=== PATIENT | female | born 1985 | race Caucasian/White ===

== ENCOUNTER 2016-11-24 17:51 | Emergency (ER) | payer OTHER ==
[2016-11-24] MEDS ORDERED: NS 0.9% 1000 ML* 1,000 ML IV ONE (19:50)
[2016-11-24 20:12] LABS: Hematocrit 41 % (35-47); Hemoglobin 13.3 g/dl (12.0-16.0); Mean Corpuscular HGB Conc 32 g/dl (31-36); Mean Corpuscular Hemoglobin 29 pg (27-31); Mean Corpuscular Volume 88 fL (80-97); Mean Platelet Volume 9 um3 (7.4-10.4); Red Blood Count 4.64 10^6/ul (4.0-5.4); Red Cell Distribution Width 13 % (10.5-15); White Blood Count 11.3 10^3/ul (3.5-10.8)
[2016-11-24 20:29] LABS: ALT 35 U/L (7-52); AST 25 U/L (13-39); Albumin 4.3 g/dL (3.2-5.2); Alkaline Phosphatase 102 U/L (34-104); Anion Gap 6 mmol/L (2-11); BUN/Creatinine Ratio 18.3 (8-20); Blood Urea Nitrogen 15 mg/dL (6-24); CO2 Carbon Dioxide 26 mmol/L (22-32); Calcium 9.4 mg/dL (8.6-10.3); Chloride 104 mmol/L (101-111); EGFR African American 103.3 (>60); EGFR Non-African American 80.3 (>60); Globulin 3.1 g/dL (2-4); Glucose 100 mg/dL (70-100); Potassium 3.8 mmol/L (3.5-5.0); Sodium 136 mmol/L (133-145); Total Protein 7.4 g/dL (6.4-8.9)
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
[2016-11-24 21:54] LABS: Urine Bacteria 1+ (Absent); Urine Bilirubin Negative (Negative); Urine Glucose Negative (Negative); Urine Nitrite Negative (Negative)
[2016-11-24 22:02] VITALS: BP 110/70
== END 2016-11-24 22:00 | disposition home or self-care (01) ==
LOC: ED 17:51
DX: S00.83XA Contusion of other part of head, initial encounter (principal); Y09 Assault by unspecified means; Y93.9 Activity, unspecified; Y92.9 Unspecified place or not applicable; Y99.9 Unspecified external cause status
CPT/HCPCS: 36415; 70450; 70486; 80053; 81003; 81015; 84702; 85025; 87086; 99282

== ENCOUNTER 2019-02-11 21:09 | Emergency (ER) | payer OTHER ==
--- OUTSIDE RECORDS SUMMARY | 2019-02-11 22:20 | XMS REPORT | Continuity of Care Document ---
:1985 External Reference #:[id number] Author Name Bimal Sheikh MD Address [address] [place] [address] Care Team Providers Name Role Phone Antionette Kyle M.D., R.Moy. Care Team Information Inspector Balance Wheel Motion Unavailable Payers Date Identification Numbers Payment Provider Subscriber Effective: 2011 Policy Number: [id number] [facility] [place] Expires: 2012 Group Name: Juan [employer]po [address] [address] PayID: [id number] [place] [address] Effective: 2012 Policy Number: [id number] [place] BCBS [place] Expires: 2013 Group Name: Juan Ppo [address] [address] PayID: [id number] [place] [address] Effective: 2013 Policy Number: [id number] Medicaid/Computer [employer] [place] Expires: 2013 Group Name: 1 1 [address] PayID: [id number] [place] [address] Effective: 2013 Policy Number: [id number] [facility] [place] Medicaid Expires: 2017 PayID: [id number] [address] [place] [address] Effective: 2017 Policy Number: [id number] Medicaid/Computer Science [place] Expires: 2017 Group Name: 1 1 [address] PayID: [id number] [place] [address] Effective: 2017 Policy Number: [id number] [facility] [place] Medicaid Expires: 2018 PayID: [id number] [address] [place] [address] Effective: 2018 Policy Number: [id number] [place] Expires: 2018 Group Name: [employer] 2 [address] [address] PayID: [id number] [place] [id number] PayID: [id number] [employer] - [employer] [place] [address] [place] [address] Advance Directives Description No Information Available Problems Date Description Provider Status Onset: 12/16/2010 Mixed hyperlipidemia Jessica Cordero NP Active Onset: 10/20/2011 Depressive disorder Antionette Kyle M.D., R.D. Active Family History Date Family Member(s) Observation Comments General Cousins and grandparents with Type 2 DM Children 1 First Son Asthma Paternal Grandmother Cancers, leukemia, breast, in her 60's after being stomach sick for 20 yrs. Maternal Grandmother due to PA () - age 30. May have had congenital heart problems. 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 Magnesium 11/28 Active Capsules 125mg 1-4 qd Antionette Doris Kyle, R.D. Vitamin D 05/16 Active Tablets 1000Unit 5000 Iu by mouth every janel Kyle M.D., R.D. Zoloft 05/09 Active Tablets 100mg 30tab 1 by mouth F41.9 s every day- prieto Kyle M.D., R.D. Norethindrone Active Tablets 0.35mg take 1 Unknown /0000 tablet by mouth daily for control Macrobid 04/30 Hx Capsules 100mg 10cap please fill s generically Saroj, - 1 by mouth Doris, 01/18 twice a day R.D. /2018 for 5 days Diflucan 11/24 Hx Tablets 150mg 1tabs 1 by mouth x 1 Suresh Kyle M.D., 02/12 R.D. Iron 05/16 Hx Tablets 28mg Suresh Kyle M.D., 02/12 R.D. Magnesium 05/16 Hx Tablets 500mg 1 by mouth every day Suresh Kyle M.D., 11/28 R.D. Vitamin C 05/16 Hx Tablets 1000mg 1 by mouth three times Saroj, - a day Doris, 02/12 R.D. B Complex 05/16 Hx Capsules Suresh Kyle M.D., 02/12 R.D. Omeprazole 04/[address] 20mg 30cap 1 by mouth s every day if Serafin Ball, - needed [employer] 05/16 Pantoprazole 02/[address] 20mg 30tab 1 by mouth Ana Sodium s every day Jaylan, - [employer] 04/28 Ondansetron 01/14 Hx Tablets 4mg 15fif dissolve 1 626.8 Dispers teen tab by mouth Jaylan, - three times [employer] 02/11 a day needed nausea Sertraline HCL 01/05 Hx Tablets 50mg 30tab 1 by mouth wnti s every day Serafin Ball, - [employer] 01/05 Zoloft 01/05 Hx Tablets 50mg 30tab 1 by mouth s daily for Saroj, - depression Doris, 05/09 R.D. Fluticasone 12/15 Hx Suspension 50mcg/Act 1mont 2 sprays Shawnti Propionate h each nare Serafin Ball, - daily for [employer] 02/11 rhinitis 2016 Hydroxyzine HCL 12/15 Hx Tablets 10mg 30tab 1 by mouth s three times Serafin Ball, - a day as [employer] 02/11 needed for dizziness or anxiety Ilotycin 10/06 Hx Ointment 5mg/GM 1unit apply a thin s layer to Jaylan, - eyelid [employer] 02/11 twice a day Cephalexin 10/06 Hx Tablets 250mg 14tab 1 tablet by 035 s mouth twice Jaylan, - a day x 7 [employer] Amoxicillin 10/06 Hx Tablets 875mg 20tab 1 tablet 035 s twice a day Jaylan, - x 10 days [employer] 12/15 replace keflex 10/06 Hx Tablets 14-0.4mg 30tab 1 by mouth s every day Jaylan, - [employer] 02/11 Clotrimazole/Be 10/06 Hx Cream 1-0.05% 45uni apply twice 110.5 tamethasone ts daily to Jaylan Dipropvalencia - lower leg [employer] 02/11 Triamcinolone 01/03 Hx Cream 0.1% 30g apply to 782.1 Antionette Acetonide affected Saroj, - area bid for Doris, 02/11 2 weeks R.D. /2015 Diflucan 09/09 Hx Tablets 150mg 1tabs 1 po x 1 Suresh Kyle M.D., 01/03 R.D. /2013 Doxycycline 07/26 Hx Capsules 100mg 28cap 1 po bid as Shawnti Hyclate s directed for Serafin Ball, - lyme- take [employer] 01/03 with glass water Amoxicillin 07/02 Hx Tablets 500mg 21tab 1 po tid x 1 s week for Saroj, - lyme disease Doris, 07/26 as directed R.D. /2012 Amoxicillin 10/30 Hx Tablets 500mg 30tab 1 po tid for 691.8 Antionette s 10 days for Suresh Kyle M.D., 11/07 infection R.D. /2012 Clotrimazole/Be 10/30 Hx Cream 1-0.05% 15gm apply to 691.8 Shawnti tamethasone affected Serafin Quinn Dipropionate - area tid [employer] 06/27 resolved Doxycycline 10/30 Hx Tablets 100mg 20tab 1 po bid for 691.8 Antionette Hyclate s 10 days Suresh Kyle M.D., 06/27 R.D. Sertraline HCL 10/25 Hx Tablets 50mg 30tab 1 po qd wnt s Serafin Ball - [facility] 11/07 Plan B One-Step 06/25 Hx Tablets 1.5mg 1tabs 1 po within 72 hours of Saroj - unprotected Jama.Melinda, 08/15 intercourse R.D. Zoloft 03/14 Hx Tablets 50mg 30tab Take 1 s Tablet Every Saroj, - Day M.DGilberto, 01/05 R.D. /2014 Sertraline HCL 11/02 Hx Tablets 50mg 30tab Take 1 s Tablet By Saroj, - Mouth Once M.DGilberto, 03/14 Daily R.D. Vistaril 07/30 Hx Capsules 50mg 60cap 1 tab po 300.02 s every 8 Gil, - hours prn [employer] 05/16 No Work Today 07/30 Hx 300.02 Gil, - [employer] 05/31 Zoloft 05/31 Hx Tablets 50mg 30tab 1 po qd s Suresh Kyle M.D., 11/02 R.D. /2011 08/13 Hx Tablets 27-1mg 90tab 1 po daily V22.2 Shawnti Plus/Iron s for vitamin Serafin Ball - suppliment [facility] 07/30 Augmentin 01/12 Hx Tablets 875mg 20tab 1 po bid s Suresh Kyle M.D., 02/23 R.D. /2008 Zoloft 01/12 Hx Tablets 100mg 30tab 1 po qd Suresh Morfin M.D., 05/31 R.D. /2009 Immunizations CPT Code Status Date Vaccine Lot # [id number] Given 07/29/2015 Influenza Virus Vaccine, Quadrivalent, 3 Yr > Quad, Preserv Free [id number] Given 07/16/2013 Influenza Vaccine-Preservative Free 3 Yrs And Above Vital Signs Date Vital Result Comment 01/18/2019 8:56am Weight 174.00 lb Weight 78.926 kg BP Systolic 92 mmHg BP Diastolic 62 mmHg Heart Rate 72 /min Body Temperature 97.6 F Respiratory Rate 14 /min 02/12/2018 11:21am Weight 177.00 lb Weight 80.287 kg BP Systolic 100 mmHg BP Diastolic 78 mmHg Heart Rate 77 /min Body Temperature 98.4 F Respiratory Rate 16 /min O2 % BldC Oximetry 98 % 10/26/2017 1:50pm Weight 177.00 lb Weight 80.287 kg BP Systolic 100 mmHg BP Diastolic 60 mmHg Heart Rate 74 /min Body Temperature 98.2 F Respiratory Rate 14 /min 03/29/2017 4:38pm Weight 174.00 lb Weight 78.926 kg BP Systolic 114 mmHg BP Diastolic 78 mmHg Heart Rate 70 /min Body Temperature 98.6 F Respiratory Rate 14 /min O2 % BldC Oximetry 99 % 01/20/2017 1:35pm Weight 177.00 lb Weight 80.287 kg BP Systolic 110 mmHg BP Diastolic 60 mmHg Heart Rate 64 /min 11/28/2016 3:16pm Weight 174.00 lb Weight 78.926 kg BP Systolic 100 mmHg BP Diastolic 60 mmHg Heart Rate 82 /min Body Temperature 98.7 F Respiratory Rate 17 /min O2 % BldC Oximetry 98 % 08/17/2016 10:56am Weight 174.00 lb Weight 78.926 kg BP Systolic 100 mmHg BP Diastolic 70 mmHg Heart Rate 60 /min Body Temperature 98.1 F Respiratory Rate 12 /min 06/15/2016 12:15pm Weight 171.00 lb Weight 77.566 kg BP Systolic 92 mmHg BP Diastolic 70 mmHg Heart Rate 72 /min 05/16/2016 3:29pm Weight 181.00 lb Weight 82.102 kg BP Systolic 120 mmHg BP Diastolic 70 mmHg Heart Rate 82 /min Body Temperature 98.6 F 04/28/2016 1:30pm Weight 172.00 lb Weight 78.019 kg BP Systolic 106 mmHg BP Diastolic 70 mmHg Heart Rate 68 /min Body Temperature 98.5 F Height 64.5 inches 5'4.50" BMI (Body Mass Index) 29.1 kg/m2 02/12/2016 2:41pm Weight 179.00 lb Weight 81.194 kg BP Systolic 110 mmHg BP Diastolic 72 mmHg Heart Rate 70 /min 12/30/2015 4:10pm Weight 175.00 lb Weight 79.380 kg BP Systolic 104 mmHg BP Diastolic 70 mmHg Heart Rate 56 /min Body Temperature 98.5 F 11/02/2015 2:49pm Weight 200.00 lb Weight 90.720 kg BP Systolic 102 mmHg BP Diastolic 58 mmHg Heart Rate 100 /min 06/12/2015 4:15pm Weight 167.00 lb Weight 75.751 kg BP Systolic 106 mmHg BP Diastolic 58 mmHg Heart Rate 60 /min Body Temperature 98.8 F 01/14/2015 3:39pm BP Systolic 100 mmHg BP Diastolic 60 mmHg Heart Rate 88 /min Body Temperature 99.1 F Last Menstrual Period [id number] 12/15/2014 3:09pm Weight 158.00 lb Weight 71.669 kg BP Systolic 100 mmHg BP Diastolic 60 mmHg Heart Rate 77 /min O2 % BldC Oximetry 98 % 10/06/2014 1:29pm Weight 156.00 lb Weight 70.762 kg BP Systolic 96 mmHg BP Diastolic 52 mmHg Heart Rate 76 /min Right Visual Acuity Distance 20/30 Left Visual Acuity Distance 20/25 Both Visual Acuity Distance 20/25 07/22/2014 10:36am Weight 153.00 lb Weight 69.401 kg BP Systolic 106 mmHg BP Diastolic 70 mmHg Heart Rate 68 /min Body Temperature 98.3 F O2 % BldC Oximetry 99 % 03/19/2014 1:13pm Weight 149.00 lb Weight 67.586 kg BP Systolic 86 mmHg BP Diastolic 52 mmHg Heart Rate 68 /min Body Temperature 98.5 F 01/13/2014 2:32pm Weight 150.00 lb Weight 68.040 kg BP Systolic 98 mmHg BP Diastolic 60 mmHg Heart Rate 68 /min 01/03/2014 1:44pm Weight 151.00 lb Weight 68.494 kg BP Systolic 92 mmHg BP Diastolic 58 mmHg Heart Rate 68 /min Last Menstrual Period [id number] 07/17/2013 12:33pm Weight 150.00 lb Weight 68.040 kg BP Systolic 120 mmHg BP Diastolic 66 mmHg Heart Rate 68 /min 06/27/2013 10:49am Weight 149.00 lb Weight 67.586 kg BP Systolic 110 mmHg BP Diastolic 70 mmHg Heart Rate 80 /min 11/07/2012 11:51am Weight 153.00 lb Weight 69.401 kg BP Systolic 104 mmHg BP Diastolic 64 mmHg Heart Rate 84 /min 10/30/2012 1:43pm Weight 152.00 lb Weight 68.947 kg BP Systolic 104 mmHg BP Diastolic 66 mmHg Heart Rate 68 /min Body Temperature 97.6 F 08/15/2012 11:45am Weight 149.00 lb Weight 67.586 kg BP Systolic 92 mmHg BP Diastolic 60 mmHg Heart Rate 82 /min O2 % BldC Oximetry 98 % Ra 05/16/2012 1:14pm Weight 152.00 lb Weight 68.947 kg BP Systolic 104 mmHg BP Diastolic 74 mmHg Heart Rate 80 /min 10/20/2011 2:34pm Weight 156.00 lb Weight 70.762 kg BP Systolic 122 mmHg BP Diastolic 80 mmHg Heart Rate 65 /min 12/16/2010 12:06pm Weight 157.00 lb Weight 71.215 kg BP Systolic 100 mmHg BP Diastolic 70 mmHg Heart Rate 76 /min Body Temperature 98.3 F Last Menstrual Period [id number] 09/14/2010 2:23pm Weight 157.00 lb Weight 71.215 kg BP Systolic 100 mmHg BP Diastolic 66 mmHg Heart Rate 84 /min Body Temperature 98.5 F 08/17/2010 10:17am Weight 158.00 lb Weight 71.669 kg BP Systolic 112 mmHg BP Diastolic 70 mmHg Heart Rate 76 /min Body Temperature 97.9 F 07/30/2010 9:34am Weight 156.00 lb Weight 70.762 kg BP Systolic 100 mmHg BP Diastolic 70 mmHg Heart Rate 80 /min Body Temperature 98.5 F 05/31/2010 9:32am Weight 160.00 lb Weight 72.576 kg BP Systolic 106 mmHg BP Diastolic 70 mmHg Heart Rate 68 /min 10/13/2009 10:55am Weight 155.00 lb Weight 70.308 kg BP Systolic 102 mmHg BP Diastolic 60 mmHg Heart Rate 80 /min Body Temperature 97.3 F 08/13/2009 8:22am Weight 147.00 lb Weight 66.679 kg BP Systolic 128 mmHg BP Diastolic 64 mmHg Heart Rate 72 /min Height 64.75 inches 5'4.75" BMI (Body Mass Index) 24.6 kg/m2 Last Menstrual Period [id number] 02/23/2009 9:08am Weight 144.00 lb Weight 65.318 kg BP Systolic 110 mmHg BP Diastolic 64 mmHg Heart Rate 78 /min 01/12/2009 10:56am Weight 142.00 lb Weight 64.411 kg BP Systolic 92 mmHg BP Diastolic 60 mmHg Heart Rate 68 /min Body Temperature 96.8 F Height 64.50 inches 5'4.50" BMI (Body Mass Index) 24.0 kg/m2 Results Test Date Facility Test Result H/L Range Note Laboratory test 11/02/2018 [facility] Cytology SEE RESULT 1 finding [phone] BELOW Laboratory test 02/12/2018 [facility] TSH (Thyroid 1.47 N 0.34-5.60 finding [phone] Stim Horm) mcIU/mL T3 Total 0.91 ng/mL N 0.87-1.78 Free T4 (Free Thyroxine) 0.79 ng/dL N 0.61-1.12 Arthritis Panel 02/12/2018 [facility] Uric Acid 5.0 mg/dL N 2.3-6.6 [phone] Erythrocyte Sed Rate 17 mm/Hr High 0-14 Anti-Nuclear Antibody 1.8 U High 2 Cyclic Citrullinated Peptide <15.6 U 3 Interpretation See Comment 4 Rheumatoid Factor <10 IU/mL 0-14 5 Laboratory test 02/12/2018 [facility] Magnesium 1.8 mg/dL Low 1.9-2.7 finding [phone] Progesterone 7.8 ng/mL 6 Testosterone Free 02/12/2018 [facility] Free 0.58 0.06-1.03 7 & Total [phone] Testosterone ng/dL ng/dl Testosterone 23 ng/dL 8-60 8 Laboratory test finding 02/12/2018 [facility] Dhea 3.1 ng/mL <10 9 [phone] Estradiol 146 pg/mL 10 CBC Auto Diff 02/12/2018 [facility] White Blood 7.4 10^3/uL N 3.5-10.8 [phone] Count Red Blood Count 4.36 10^6/uL N 4.0-5.4 Hemoglobin 13.6 g/dL N 12.0-16.0 Hematocrit 40 % N 35-47 Mean Corpuscular Volume 91 fL N 80-97 Mean Corpuscular Hemoglobin 31 pg N 27-31 Mean Corpuscular HGB Conc 35 g/dL N 31-36 Red Cell Distribution Width 13 % N 10.5-15 Platelet Count 217 10^3/uL N 150-450 Mean Platelet Volume 9.2 um3 N 7.4-10.4 Abs Neutrophils 4.2 10^3/uL N 1.5-7.7 Abs Lymphocytes 2.6 10^3/uL N 1.0-4.8 Abs Monocytes 0.4 10^3/uL N 0-0.8 Abs Eosinophils 0.1 10^3/uL N 0-0.6 Abs Basophils 0 10^3/uL N 0-0.2 Abs Nucleated RBC 0 10^3/uL Granulocyte % 56.9 % N 38-83 Lymphocyte % 35.2 % N 25-47 Monocyte % 5.3 % N 0-7 Eosinophil % 2.0 % N 0-6 Basophil % 0.6 % N 0-2 Nucleated Red Blood Cells % 0.1 Laboratory test 02/12/2018 [facility] Vitamin D 44.7 ng/mL N 20-50 11, 12 finding [phone] Total 25(Oh) Laboratory test 09/25/2017 [facility] Ferritin 24.8 ng/mL N 11-307 13, 14 finding [phone] Vitamin B12 739 pg/mL N 180-914 15 Vitamin D Total 25(Oh) 50.5 ng/mL High 20-50 16 Lipid Profile 09/25/2017 [facility] Triglycerides 124 mg/dL 17 (Trig/Chol/HDL) [phone] Cholesterol 197 mg/dL 18 HDL Cholesterol 43.3 mg/dL 19 LDL Cholesterol 129 mg/dL 20 Iron & Iron Binding 09/25/2017 [facility] Iron 61 g /dL N 50-212 Capacity [phone] Unsaturated Iron Binding 299 g/dL Total Iron Binding Capacity 360 g/dL N 250-450 % Iron Saturation 17 % N 15-55 Laboratory test 11/24/2016 [facility] Urine Culture SEE RESULT 21 finding [phone] BELOW Urinalysis Profile 11/24/2016 [facility] Urine Color Yellow N [phone] Urine Appearance Cloudy N Urine Specific [place] 1.006 Low 1.010-1.030 Urine pH 5.0 N 5-9 Urine Urobilinogen Negative N Negative Urine Ketones Negative N Negative Urine Protein Negative N Negative Urine Leukocytes Trace Abnormal Negative Urine Blood Negative N Negative Urine Nitrite Negative N Negative Urine Bilirubin Negative N Negative Urine Glucose Negative N Negative Urine White Blood Cell Trace(0-5/hpf) N Absent Urine Red Blood Cell Trace(0-2/hpf) N Absent Urine Bacteria 1+ Abnormal Absent Urine Squamous Epithelial Cell Present Abnormal Absent Laboratory test 11/24/2016 [facility] HCG < 0.60 N 22 finding [phone] mIU/mL Comp Metabolic 11/24/2016 [facility] Sodium 136 mmol/ L N 133-14 Panel [phone] Potassium 3.8 mmol/L N 3.5-5.0 Chloride 104 mmol/L N 101-111 Co2 Carbon Dioxide 26 mmol/L N 22-32 Anion Gap 6 mmol/L N 2-11 Glucose 100 mg/dL N 70-100 Blood Urea Nitrogen 15 mg/dL N 6-24 Creatinine 0.82 mg/dL N 0.51-0.95 BUN/Creatinine Ratio 18.3 N 8-20 Calcium 9.4 mg/dL N 8.6-10.3 Total Protein 7.4 g/dL N 6.4-8.9 Albumin 4.3 g/dL N 3.2-5.2 Globulin 3.1 g/dL N 2-4 Albumin/Globulin Ratio 1.4 N 1-3 Total Bilirubin 0.30 mg/dL N 0.2-1.0 Alkaline Phosphatase 102 U/L N 34-104 Alt 35 U/L N 7-52 Ast 25 U/L N 13-39 Egfr Non- 80.3 N >60 Egfr 103.3 N >60 23 CBC Auto 11/24/2016 [facility] White Blood 11.3 10^3/ uL High 3.5-10.8 Diff [phone] Count Red Blood Count 4.64 10^6/uL N 4.0-5.4 Hemoglobin 13.3 g/dL N 12.0-16.0 Hematocrit 41 % N 35-47 Mean Corpuscular Volume 88 fL N 80-97 Mean Corpuscular Hemoglobin 29 pg N 27-31 Mean Corpuscular HGB Conc 32 g/dL N 31-36 Red Cell Distribution Width 13 % N 10.5-15 Platelet Count 229 10^3/uL N 150-450 Mean Platelet Volume 9 um3 N 7.4-10.4 Abs Neutrophils 8.3 10^3/uL High 1.5-7.7 Abs Lymphocytes 2.2 10^3/uL N 1.0-4.8 Abs Monocytes 0.6 10^3/uL N 0-0.8 Abs Eosinophils 0 10^3/uL N 0-0.6 Abs Basophils 0.1 10^3/uL N 0-0.2 Abs Nucleated RBC 0 10^3/uL N Granulocyte % 73.5 % N 38-83 Lymphocyte % 19.7 % Low 25-47 Monocyte % 5.2 % N 1-9 Eosinophil % 0.4 % N 0-6 Basophil % 1.2 % N 0-2 Nucleated Red Blood Cells % 0 N Comp Metabolic Panel 11/19/2016 [facility] Sodium 137 mmol/L N 133-145 [phone] Potassium 4.5 mmol/L N 3.5-5.0 Chloride 105 mmol/L N 101-111 Co2 Carbon Dioxide 29 mmol/L N 22-32 Anion Gap 3 mmol/L N 2-11 Glucose 92 mg/dL N 70-100 Blood Urea Nitrogen 12 mg/dL N 6-24 Creatinine 0.71 mg/dL N 0.51-0.95 BUN/Creatinine Ratio 16.9 N 8-20 Calcium 9.3 mg/dL N 8.6-10.3 Total Protein 7.0 g/dL N 6.4-8.9 Albumin 4.3 g/dL N 3.2-5.2 Globulin 2.7 g/dL N 2-4 Albumin/Globulin Ratio 1.6 N 1-3 Total Bilirubin 0.40 mg/dL N 0.2-1.0 Alkaline Phosphatase 91 U/L N 34-104 Alt 37 U/L N 7-52 Ast 34 U/L N 13-39 Egfr Non- 94.8 N >60 Egfr 121.9 N >60 24 CBC Auto Diff 11/19/2016 [facility] White Blood 7.2 10^3/uL N 3.5-10.8 [phone] Count Red Blood Count 4.54 10^6/uL N 4.0-5.4 Hemoglobin 13.3 g/dL N 12.0-16.0 Hematocrit 40 % N 35-47 Mean Corpuscular Volume 88 fL N 80-97 Mean Corpuscular Hemoglobin 29 pg N 27-31 Mean Corpuscular HGB Conc 33 g/dL N 31-36 Red Cell Distribution Width 14 % N 10.5-15 Platelet Count 208 10^3/uL N 150-450 Mean Platelet Volume 9 um3 N 7.4-10.4 Abs Neutrophils 4.2 10^3/uL N 1.5-7.7 Abs Lymphocytes 2.5 10^3/uL N 1.0-4.8 Abs Monocytes 0.4 10^3/uL N 0-0.8 Abs Eosinophils 0.1 10^3/uL N 0-0.6 Abs Basophils 0 10^3/uL N 0-0.2 Abs Nucleated RBC 0 10^3/uL N Granulocyte % 58.3 % N 38-83 Lymphocyte % 34.0 % N 25-47 Monocyte % 6.1 % N 1-9 Eosinophil % 0.9 % N 0-6 Basophil % 0.7 % N 0-2 Nucleated Red Blood Cells % 0 N Laboratory test 11/19/2016 [facility] Ferritin 18.3 ng/mL N 11-307 finding [phone] Vitamin D Total 25(Oh) 29.8 ng/mL Low 30-50 Vitamin B12 887 pg/mL N 180-914 25 Magnesium 2.0 mg/dL N 1.9-2.7 Laboratory test 08/08/2016 [facility] Ferritin 14.3 ng/mL N 11-307 finding [phone] RBC Magnesium 3.6 mg/dL N 3.5-7.1 26 CBC Auto Diff 08/08/2016 [facility] White Blood 7.7 10^3/uL N 3.5-10.8 [phone] Count Red Blood Count 4.60 10^6/uL N 4.0-5.4 Hemoglobin 13.0 g/dL N 12.0-16.0 Hematocrit 40 % N 35-47 Mean Corpuscular Volume 86 fL N 80-97 Mean Corpuscular Hemoglobin 28 pg N 27-31 Mean Corpuscular HGB Conc 33 g/dL N 31-36 Red Cell Distribution Width 14 % N 10.5-15 Platelet Count 202 10^3/uL N 150-450 Mean Platelet Volume 10 um3 N 7.4-10.4 Abs Neutrophils 4.1 10^3/uL N 1.5-7.7 Abs Lymphocytes 2.9 10^3/uL N 1.0-4.8 Abs Monocytes 0.4 10^3/uL N 0-0.8 Abs Eosinophils 0.2 10^3/uL N 0-0.6 Abs Basophils 0.1 10^3/uL N 0-0.2 Abs Nucleated RBC 0 10^3/uL N Granulocyte % 53.9 % N 38-83 Lymphocyte % 38.5 % N 25-47 Monocyte % 4.7 % N 1-9 Eosinophil % 2.1 % N 0-6 Basophil % 0.8 % N 0-2 Nucleated Red Blood Cells % 0 N Laboratory test 08/08/2016 [facility] Vitamin B12 647 pg/mL N 180-914 27 finding [phone] Vitamin D Total 25(Oh) 41.4 ng/mL N 30-50 Laboratory test 06/15/2016 [facility] Vitamin D 63.9 ng/mL High 30-50 28 finding [phone] Total 25(Oh) Vitamin B12 738 pg/mL N 180-914 29 Magnesium 2.0 mg/dL N 1.9-2.7 30 Iron & Iron Binding 06/15/2016 [facility] Iron 141 g/dL N 50-212 Capacity [phone] Unsaturated Iron Binding 229 g/dL N Total Iron Binding Capacity 370 g/dL N 250-450 % Iron Saturation 38 % N 15-55 CBC Auto Diff 06/15/2016 [facility] White Blood 6.8 10^3/uL N 3.5-10.8 [phone] Count Red Blood Count 4.67 10^6/uL N 4.0-5.4 Hemoglobin 13.2 g/dL N 12.0-16.0 Hematocrit 41 % N 35-47 Mean Corpuscular Volume 88 fL N 80-97 Mean Corpuscular Hemoglobin 28 pg N 27-31 Mean Corpuscular HGB Conc 32 g/dL N 31-36 Red Cell Distribution Width 14 % N 10.5-15 Platelet Count 242 10^3/uL N 150-450 Mean Platelet Volume 10 um3 N 7.4-10.4 Abs Neutrophils 3.6 10^3/uL N 1.5-7.7 Abs Lymphocytes 2.6 10^3/uL N 1.0-4.8 Abs Monocytes 0.3 10^3/uL N 0-0.8 Abs Eosinophils 0.2 10^3/uL N 0-0.6 Abs Basophils 0.1 10^3/uL N 0-0.2 Abs Nucleated RBC 0.04 10^3/uL N Granulocyte % 53.0 % N 38-83 Lymphocyte % 38.2 % N 25-47 Monocyte % 5.1 % N 1-9 Eosinophil % 2.8 % N 0-6 Basophil % 0.9 % N 0-2 Nucleated Red Blood Cells % 0.5 N Laboratory test 06/15/2016 [facility] Ferritin 10.8 ng/mL Low 11-307 31 finding [phone] Laboratory test 02/12/2016 [facility] HCG DIP Test NEG Neg finding [phone] Laboratory test 12/30/2015 [facility] House [facility] Glucose By 84 78-110 finding [phone] Moniter Laboratory test 11/02/2015 [facility] Surgical SEE RESULT 32 finding [phone] Pathology BELOW CBC Auto Diff 07/04/2015 [facility] White Blood 7.6 N 4.8-10.8 [phone] Count 10^3/uL Red Blood Count 3.40 10^6/uL Low 4.0-5.4 Hemoglobin 10.8 g/dL Low 12.0-16.0 Hematocrit 32 % Low 35-47 Mean Corpuscular Volume 95 fL N 80-97 Mean Corpuscular Hemoglobin 32 pg High 27-31 Mean Corpuscular HGB Conc 34 g/dL N 31-36 Red Cell Distribution Width 14 % N 10.5-15 Platelet Count 194 10^3/uL N 150-450 Mean Platelet Volume 9 um3 N 7.4-10.4 Abs Neutrophils 5.4 10^3/uL N 1.5-7.7 Abs Lymphocytes 1.9 10^3/uL N 1.0-4.8 Abs Monocytes 0.3 10^3/uL N 0-0.8 Abs Eosinophils 0.1 10^3/uL N 0-0.6 Abs Basophils 0 10^3/uL N 0-0.2 Abs Nucleated RBC 0.01 10^3/uL N Granulocyte % 70.2 % N 38-83 Lymphocyte % 24.6 % Low 25-47 Monocyte % 3.7 % N 1-9 Eosinophil % 1.1 % N 0-6 Basophil % 0.4 % N 0-2 Nucleated Red Blood Cells % 0.1 N Lipid Profile 07/04/2015 [facility] Triglycerides 200 mg/dL N 33 (Trig/Chol/HDL) [phone] Cholesterol 245 mg/dL N 34 HDL Cholesterol 73.7 mg/dL N 35 LDL Cholesterol 131 mg/dL N 36 CBC Auto Diff 06/18/2015 [facility] White Blood 7.9 10^3/uL N 4.8-10.8 [phone] Count Red Blood Count 3.63 10^6/uL Low 4.0-5.4 Hemoglobin 11.1 g/dL Low 12.0-16.0 Hematocrit 34 % Low 35-47 Mean Corpuscular Volume 93 fL N 80-97 Mean Corpuscular Hemoglobin 31 pg N 27-31 Mean Corpuscular HGB Conc 33 g/dL N 31-36 Red Cell Distribution Width 15 % N 10.5-15 Platelet Count 188 10^3/uL N 150-450 Mean Platelet Volume 9 um3 N 7.4-10.4 Abs Neutrophils 5.5 10^3/uL N 1.5-7.7 Abs Lymphocytes 2.0 10^3/uL N 1.0-4.8 Abs Monocytes 0.2 10^3/uL N 0-0.8 Abs Eosinophils 0.1 10^3/uL N 0-0.6 Abs Basophils 0 10^3/uL N 0-0.2 Abs Nucleated RBC 0 10^3/uL N Granulocyte % 70.0 % N 38-83 Lymphocyte % 25.3 % N 25-47 Monocyte % 3.1 % N 1-9 Eosinophil % 1.3 % N 0-6 Basophil % 0.3 % N 0-2 Nucleated Red Blood Cells % 0 N Laboratory test 06/18/2015 [facility] C Reactive 6.09 mg/L High < 5.00 37 finding [phone] Protein Ferritin 15.8 ng/mL N 11-307 Iron & Iron Binding 06/18/2015 [facility] Iron 79 g /dL N 50-212 Capacity [phone] Unsaturated Iron Binding 412 g/dL N Total Iron Binding Capacity 491 g/dL High 250-450 % Iron Saturation 16 % N 15-55 CBC Auto Diff 06/12/2015 [facility] White Blood 6.8 10^3/uL N 4.8-10.8 [phone] Count Red Blood Count 3.86 10^6/uL Low 4.0-5.4 Hemoglobin 12.0 g/dL N 12.0-16.0 Hematocrit 36 % N 35-47 Mean Corpuscular Volume 92 fL N 80-97 Mean Corpuscular Hemoglobin 31 pg N 27-31 Mean Corpuscular HGB Conc 34 g/dL N 31-36 Red Cell Distribution Width 15 % N 10.5-15 Platelet Count 169 10^3/uL N 150-450 Mean Platelet Volume 8 um3 N 7.4-10.4 Abs Neutrophils 5.7 10^3/uL N 1.5-7.7 Abs Lymphocytes 0.7 10^3/uL Low 1.0-4.8 Abs Monocytes 0.3 10^3/uL N 0-0.8 Abs Eosinophils 0 10^3/uL N 0-0.6 Abs Basophils 0 10^3/uL N 0-0.2 Abs Nucleated RBC 0 10^3/uL N Granulocyte % 84.2 % High 38-83 Lymphocyte % 10.2 % Low 25-47 Monocyte % 5.1 % N 1-9 Eosinophil % 0.2 % N 0-6 Basophil % 0.3 % N 0-2 Nucleated Red Blood Cells % 0 N Urinalysis Profile 06/12/2015 [facility] Urine Color Yellow N [phone] Urine Appearance Cloudy N Urine Specific [place] 1.020 N 1.010-1.030 Urine pH 6.0 N 5-9 Urine Urobilinogen Negative N Negative Urine Ketones Negative N Negative Urine Protein Negative N Negative Urine Leukocytes Negative N Negative Urine Blood Negative N Negative Urine Nitrite Negative N Negative Urine Bilirubin Negative N Negative Urine Glucose Negative N Negative Comp Metabolic Panel 06/12/2015 [facility] Sodium 134 mmol/L N 133-145 [phone] Potassium 3.5 mmol/L N 3.5-5.0 Chloride 104 mmol/L N 101-111 Co2 Carbon Dioxide 24 mmol/L N 22-32 Anion Gap 6 mmol/L N 2-11 Glucose 85 mg/dL N 70-100 Blood Urea Nitrogen 10 mg/dL N 6-24 Creatinine 0.62 mg/dL N 0.51-0.95 BUN/Creatinine Ratio 16.1 N 8-20 Calcium 8.9 mg/dL N 8.6-10.3 Total Protein 6.5 g/dL N 6.4-8.9 Albumin 3.4 g/dL N 3.2-5.2 Globulin 3.1 g/dL N 2-4 Albumin/Globulin Ratio 1.1 N 1-3 Total Bilirubin 0.20 mg/dL N 0.2-1.0 Alkaline Phosphatase 68 U/L N 34-104 Alt 12 U/L N 7-52 Ast 13 U/L N 13-39 Egfr Non- 111.6 N >60 Egfr 143.5 N >60 38 Laboratory test 06/12/2015 [facility] Lipase 22 U/L N 11.0-82.0 finding [phone] C Reactive Protein 21.63 mg/L High < 5.00 39 Lactic Acid 0.8 mmol/L N 0.5-2.2 Urinalysis Profile 05/13/2015 [facility] Urine Color Yellow N 40 [phone] Urine Appearance Cloudy N Urine Specific [place] 1.023 N 1.010-1.030 Urine pH 6.0 N 5-9 Urine Urobilinogen Negative N Negative Urine Ketones Negative N Negative Urine Protein Negative N Negative Urine Leukocytes 1+ Abnormal Negative Urine Blood Negative N Negative * * Abnormal Negative 41 Urine Nitrite Negative N Negative Urine Bilirubin Negative N Negative Urine Glucose Negative N Negative Urine White Blood Cell Trace(0-5/hpf) N Absent Urine Red Blood Cell 2+(6-10/hpf) Abnormal Absent Urine Bacteria Absent N Absent Urine Squamous Epithelial Cell Present Abnormal Absent Laboratory test 05/13/2015 [facility] Urine Culture SEE RESULT 42 finding [phone] BELOW CBC Auto Diff 04/02/2015 [facility] White Blood 8.6 10^3/uL N 4.8-10 [phone] Count .8 Red Blood Count 4.09 10^6/uL N 4.0-5.4 Hemoglobin 12.3 g/dL N 12.0-16.0 Hematocrit 37 % N 35-47 Mean Corpuscular Volume 91 fL N 80-97 Mean Corpuscular Hemoglobin 30 pg N 27-31 Mean Corpuscular HGB Conc 33 g/dL N 31-36 Red Cell Distribution Width 14 % N 10.5-15 Platelet Count 199 10^3/uL N 150-450 Mean Platelet Volume 9 um3 N 7.4-10.4 Abs Neutrophils 5.3 10^3/uL N 1.5-7.7 Abs Lymphocytes 2.6 10^3/uL N 1.0-4.8 Abs Monocytes 0.7 10^3/uL N 0-0.8 Abs Eosinophils 0.1 10^3/uL N 0-0.6 Abs Basophils 0.1 10^3/uL N 0-0.2 Abs Nucleated RBC 0 10^3/uL N Granulocyte % 61.0 % N 38-83 Lymphocyte % 29.7 % N 25-47 Monocyte % 7.7 % N 1-9 Eosinophil % 0.9 % N 0-6 Basophil % 0.7 % N 0-2 Nucleated Red Blood Cells % 0 N Urinalysis Profile 04/02/2015 [facility] Urine Color Yellow N [phone] Urine Appearance Cloudy N Urine Specific [place] 1.006 Low 1.010-1.030 Urine pH 6.0 N 5-9 Urine Urobilinogen Negative N Negative Urine Ketones Negative N Negative Urine Protein Negative N Negative Urine Leukocytes 3+ Abnormal Negative Urine Blood Negative N Negative Urine Nitrite Negative N Negative Urine Bilirubin Negative N Negative Urine Glucose Negative N Negative Urine White Blood Cell 1+(6-10/hpf) Abnormal Absent Urine Red Blood Cell 2+(6-10/hpf) Abnormal Absent Urine Bacteria 1+ Abnormal Absent Urine Squamous Epithelial Cell Present Abnormal Absent Urine Yeast Present Abnormal Absent Comp Metabolic Panel 04/02/2015 [facility] Sodium 137 mmol/L N 133-145 [phone] Potassium 3.7 mmol/L N 3.5-5.0 Chloride 106 mmol/L N 101-111 Co2 Carbon Dioxide 26 mmol/L N 22-32 Anion Gap 5 mmol/L N 2-11 Glucose 59 mg/dL Low 70-100 Blood Urea Nitrogen 10 mg/dL N 6-24 Creatinine 0.74 mg/dL N 0.51-0.95 BUN/Creatinine Ratio 13.5 N 8-20 Calcium 9.1 mg/dL N 8.6-10.3 Total Protein 6.8 g/dL N 6.4-8.9 Albumin 4.1 g/dL N 3.2-5.2 Globulin 2.7 g/dL N 2-4 Albumin/Globulin Ratio 1.5 N 1-3 Total Bilirubin 0.30 mg/dL N 0.2-1.0 Alkaline Phosphatase 50 U/L N 34-104 Alt 18 U/L N 7-52 Ast 16 U/L N 13-39 Egfr Non- 91.5 N >60 Egfr 117.7 N >60 43 Laboratory test 04/02/2015 [facility] Magnesium 1.8 mg/dL Low 1.9-2.7 finding [phone] TSH (Thyroid Stimulating Horm) 1.31 ?IU/mL N 0.34-5.60 Urine Culture SEE RESULT BELOW 44 Laboratory test 01/14/2015 [facility] Genital (SEE NOTE) 45 finding [phone] Culture CBC Auto Diff 01/14/2015 [facility] White Blood 9.3 10^3/uL N 4.8-10 [phone] Count .8 Red Blood Count 4.35 10^6/uL N 4.0-5.4 Hemoglobin 13.9 g/dL N 12.0-16.0 Hematocrit 41 % N 35-47 Mean Corpuscular Volume 94 fL N 80-97 Mean Corpuscular Hemoglobin 32 pg High 27-31 Mean Corpuscular HGB Conc 34 g/dL N 31-36 Red Cell Distribution Width 13 % N 10.5-15 Platelet Count 188 10^3/uL N 150-450 Mean Platelet Volume 9 um3 N 7.4-10.4 Abs Neutrophils 7.4 10^3/uL N 1.5-7.7 Abs Lymphocytes 1.3 10^3/uL N 1.0-4.8 Abs Monocytes 0.5 10^3/uL N 0-0.8 Abs Eosinophils 0.1 10^3/uL N 0-0.6 Abs Basophils 0 10^3/uL N 0-0.2 Abs Nucleated RBC 0 10^3/uL N Granulocyte % 79.9 % N 38-83 Lymphocyte % 13.5 % Low 25-47 Monocyte % 4.9 % N 1-9 Eosinophil % 1.3 % N 0-6 Basophil % 0.4 % N 0-2 Nucleated Red Blood Cells % 0 N Iron & Iron Binding 01/14/2015 [facility] Iron 86 g /dL N 50-212 Capacity [phone] Unsaturated Iron Binding 268 g/dL N Total Iron Binding Capacity 354 g/dL N 250-450 % Iron Saturation 24 % N 15-55 Comp Metabolic Panel 01/14/2015 [facility] Sodium 136 mmol/L N 133-145 [phone] Potassium 4.1 mmol/L N 3.5-5.0 Chloride 104 mmol/L N 101-111 Co2 Carbon Dioxide 28 mmol/L N 22-32 Anion Gap 4 mmol/L N 2-11 Glucose 90 mg/dL N 70-100 Blood Urea Nitrogen 15 mg/dL N 6-24 Creatinine 0.76 mg/dL N 0.51-0.95 BUN/Creatinine Ratio 19.7 N 8-20 Calcium 9.0 mg/dL N 8.6-10.3 Total Protein 7.1 g/dL N 6.4-8.9 Albumin 4.6 g/dL N 3.2-5.2 Globulin 2.5 g/dL N 2-4 Albumin/Globulin Ratio 1.8 N 1-3 Total Bilirubin 0.50 mg/dL N 0.2-1.0 Alkaline Phosphatase 60 U/L N 34-104 Alt 14 U/L N 7-52 Ast 14 U/L N 13-39 Egfr Non- 88.8 N >60 Egfr 114.2 N >60 46 Laboratory test 01/14/2015 [facility] Serum Negative N Negative 47 finding [phone] Laboratory test 09/23/2014 [facility] Serum Positive N Negative 48 finding [phone] Dre Hep-2 07/22/2014 [facility] Dre Pattern Homogeneous N Negative [phone] Dre Titer 1:320 N <1:80 Dre Reviewed By MD Maria Dolores Lopez N 49 Laboratory test 07/22/2014 [facility] Ferritin 12.3 ng/mL N 11-307 finding [phone] Magnesium 1.9 mg/dL N 1.9-2.7 Dre (Anti-Nuclear AB) Screen Reflexed to FA Abnormal Negative Iron & Iron Binding 07/22/2014 [facility] Iron 65 g /dL N 50-212 Capacity [phone] Unsaturated Iron Binding 261 g/dL N Total Iron Binding Capacity 326 g/dL N 250-450 % Iron Saturation 20 % N 15-55 Iron 65 g/dL N 50-212 Unsaturated Iron Binding 261 g/dL N Total Iron Binding Capacity 326 g/dL N 250-450 % Iron Saturation 20 % N 15-55 Vitamin D, 25 07/22/2014 [facility] 25-Hydroxy Vitamin <4.0 ng/mL N Hydroxy [phone] D2 25-Hydroxy Vitamin D3 43 ng/mL N 25-Hydroxy Vitamin D Total 43 ng/mL N 50 Laboratory test 07/22/2014 [facility] TSH (Thyroid 1.47 IU/mL N 0.34-5.60 finding [phone] Stimulating Horm) Vitamin B12 783 pg/mL N 180-914 51 Lipid Profile 07/22/2014 [facility] Triglycerides 87 mg/dL N 52 (Trig/Chol/HDL) [phone] Cholesterol 142 mg/dL N 53 HDL Cholesterol 40.2 mg/dL N 54 LDL Cholesterol 84 mg/dL N 55 Laboratory test 07/22/2014 [facility] Serum Negative N Negative 56 finding [phone] Laboratory test 03/19/2014 [facility] Mercury,Blood 2 ng/mL N 0-9 57 finding [phone] Lyme Western 03/19/2014 [facility] Lyme Disease Negative N Negative Blot [phone] IgG Ab WB Lyme Disease IgG Bands Present p41, kDa N Lyme Disease IgM Ab WB Negative N Negative Lyme Disease IgM Bands Present No bands detecte <SEE NOTE> kDa N 58 Lyme Disease Interpretation See Comment N 59 Laboratory test 03/12/2014 [facility] Rheumatoid Factor <15 IU/mL N <15 60 finding [phone] Anti Double Stranded Dna Negative N Negative Centromere Abs <0.2 U N 61 Sm ([place]) IgG Antibody <0.2 U N 62 Cyclic Citrullinated Pept IgG <15.6 U N 63 Ssa/SSB Abs Igg 03/12/2014 [facility] SS-A/Ro Antibody <0.2 U N 64 [phone] SS-B/La Antibody <0.2 U N 65 Laboratory test 03/12/2014 [facility] Scleroderma Ab <0.2 U N 66 finding [phone] Laboratory test 01/14/2014 [facility] Serum Negative Negative 67 finding [phone] Laboratory test 01/13/2014 [facility] Cytology RUN DATE: 68 finding [phone] <SEE NOTE> CBC Auto Diff 01/13/2014 [facility] White Blood 6.1 10^3/uL 4.8-10.8 [phone] Count Red Blood Count 4.55 10^6/uL 4.0-5.4 Hemoglobin 14.2 g/dL 12.0-16.0 Hematocrit 42 % 35-47 Mean Corpuscular Volume 91 fL 80-97 Mean Corpuscular Hemoglobin 31 pg 27-31 Mean Corpuscular HGB Conc 34 g/dL 31-36 Red Cell Distribution Width 13 % 10.5-15 Platelet Count 155 10^3/uL 150-450 Mean Platelet Volume 10 um3 7.4-10.4 Abs Neutrophils 3.7 10^3/uL 1.5-7.7 Abs Lymphocytes 1.7 10^3/uL 1.0-4.8 Abs Monocytes 0.6 10^3/uL 0-0.8 Abs Eosinophils 0.1 10^3/uL 0-0.6 Abs Basophils 0 10^3/uL 0-0.2 Abs Nucleated RBC 0 10^3/uL Granulocyte % 61.4 % 38-83 Lymphocyte % 27.5 % 25-47 Monocyte % 9.7 % High 1-9 Eosinophil % 0.8 % 0-6 Basophil % 0.6 % 0-2 Nucleated Red Blood Cells % 0 Comp Metabolic Panel 01/13/2014 [facility] Sodium 139 mmol/L 133-145 [phone] Potassium 3.9 mmol/L 3.7-5.6 Chloride 107 mmol/L 101-111 Co2 Carbon Dioxide 27 mmol/L 22-32 Anion Gap 5 mmol/L 2-11 Glucose 84 mg/dL 70-100 Blood Urea Nitrogen 13 mg/dL 6-24 Creatinine 0.85 mg/dL 0.51-0.95 BUN/Creatinine Ratio 15.3 8-20 Calcium 8.6 mg/dL 8.6-10.3 Total Protein 6.8 g/dL 6.4-8.9 Albumin 4.3 g/dL 3.2-5.2 Globulin 2.5 g/dL 2-4 Albumin/Globulin Ratio 1.7 1-3 Total Bilirubin 0.30 mg/dL 0.2-1.0 Alkaline Phosphatase 63 U/L 34-104 Alt 16 U/L 7-52 Ast 14 U/L 13-39 Egfr Non- 78.5 >60 Egfr 101.0 >60 69 Lipid Profile 09/07/2013 [facility] Triglycerides 85 mg/dL 40-200 (Trig/Chol/HDL) [phone] Cholesterol 161 mg/dL Less than 200 HDL Cholesterol 49 mg/dL 40-60 70 Cholesterol/HDL Ratio 3.3 Average 1-4.44 LDL Cholesterol 95.0 Less Than 100 71 CBC No Diff 09/07/2013 [facility] White Blood 6.9 10^ 3/uL 4.8-10.8 [phone] Count Red Blood Count 4.41 10^6/uL 4.0-5.4 Hemoglobin 13.5 g/dL 12.0-16.0 Hematocrit 40 % 35-47 Mean Corpuscular Volume 91 fL 80-97 Mean Corpuscular Hemoglobin 31 pg 27-31 Mean Corpuscular HGB Conc 34 g/dL 31-36 Red Cell Distribution Width 13 % 10.5-15 Platelet Count 174 10^3/uL 150-450 Mean Platelet Volume 10 um3 7.4-10.4 Lyme Western 06/27/2013 [facility] Lyme Disease Negative Negative Blot [phone] IgG Ab WB Lyme Disease IgG Bands Present No bands detecte <SEE NOTE> kDa 72 Lyme Disease IgM Ab WB Positive Negative Lyme Disease IgM Bands Present p41, p39, kDa Lyme Disease Interpretation See Comment 73 Laboratory test 06/27/2013 [facility] Creatine Kinase 85 U/L 0-200 finding [phone] TSH (Thyroid Stimulating Horm) 1.39 miu/mL 0.34-5.60 Comp Metabolic Panel 06/27/2013 [facility] Sodium 137 mmol/L 133-145 [phone] Potassium 3.9 mmol/L 3.5-5.0 Chloride 102 mmol/L 101-111 Co2 Carbon Dioxide 27.0 mmol/L 22-32 Anion Gap 8.0 mmol/L 2-11 Glucose 83 mg/dL 70-100 Blood Urea Nitrogen 11 mg/dL 6-24 Creatinine 0.70 mg/dL 0.50-1.40 BUN/Creatinine Ratio 15.7 8-20 Calcium 9.4 mg/dL 8.1-9.9 Total Protein 6.8 g/dL 6.2-8.1 Albumin 4.3 g/dL 3.6-5.4 Globulin 2.5 g/dL 2-4 Albumin/Globulin Ratio 1.7 1-3 Total Bilirubin 0.7 mg/dL 0.4-1.5 Alkaline Phosphatase 76 U/L 30-110 Alt 26 U/L 14-54 Ast 21 U/L 12-42 Egfr Non- 98.3 >60 Egfr 126.4 >60 74 Laboratory test 07/09/2012 [facility] BHCG Quantitative < 2.1 0-5 75 finding [phone] MIU/ML Laboratory test 05/16/2012 [facility] Vitamin B12 477 pg/mL 180-914 finding [phone] Hemoglobin A1c 5.0 % Less Than 6.0 76 Comp Metabolic Panel 05/16/2012 [facility] Sodium 137 mmol/L 135-145 [phone] Potassium 4.1 mmol/L 3.5-5.0 Chloride 104 mmol/L 101-111 Co2 (Carbon Dioxide) 28.0 mmol/L 22-32 Anion Gap 5.0 mmol/L 2-11 77 Glucose 88 mg/dL 70-100 BUN 11 mg/dL 6-24 Creatinine 0.7 mg/dL 0.50-1.40 One Over Creatinine 1.42 BUN/Creatinine Ratio 15.7 8-20 Calcium 9.2 mg/dL 8.1-9.9 Total Protein 6.4 GM/DL 6.2-8.1 Albumin 4.2 GM/DL 3.6-5.4 Globulin 2.2 GM/DL 2-4 Albumin/Globulin Ratio 1.9 1-3 Bilirubin Total 0.6 mg/dL 0.4-1.5 78 Alkaline Phosphatase 68 U/L 30-110 Alt (SGPT) 21 U/L 14-54 Ast (Sgot) 19 U/L 12-42 eGFR Non- 98.9 > 60 eGFR 127.2 > 60 79 Celiac Panel 10/20/2011 [facility] Endomysial Abs Negative Negative 80 [phone] Gliadin Igg <10.0 U () 81 Gliadin Iga <10.0 U () 82 Reticulin AB Negative Negative 83 CBC Auto Diff 10/20/2011 [facility] White Blood 7.0 CUMM 4.8-10.8 [phone] Count Red Cell Count 4.00 CUMM Low 4.2-5.4 Hemoglobin 12.4 g/dL 12.0-16.0 Hematocrit 36 % 35-47 Mean Corpuscular Volume 91 um3 79-97 Mean Corpuscular Hemoglob 31 pg 27-31 Mean Corpuscular HGB Cone 34 g/dL 32-36 Redcell Distribution WDTH 13 % 10.5-15 Platelet Count 184 CUMM 150-450 Mean Platelet Volume 9.7 um3 7.4-10.4 Gran % 52.1 % 38-83 Lymph % 39.4 % 25-47 Mononuclear % 6.5 % 1-9 Eosinophil % 1.5 % 0-6 Basophil % 0.5 % 0-2 Abs Lymphs 2.8 1.0-4.8 Abs Mononuclear 0.5 0-0.8 Absolute Neutrophil Count 3.7 1.5-7.7 Abs Eosinophils 0.1 0-0.6 Abs Basophils 0 0-0.2 Laboratory test 10/20/2011 [facility] TSH 0.90 MIU/ ML 0.34-5.60 finding [phone] Erythrocyte Sed Rate 12 MM/HR 0-15 Vitamin D, 25 10/20/2011 [facility] 25-Hydroxy Vitamin <4.0 ng/mL () Hydroxy [phone] D2 25-Hydroxy Vitamin D3 33 ng/mL () 25-Hydroxy Vitamin D Total 33 ng/mL () 84 Urine DIP 12/16/2010 [facility] Leukocytes neg Neg (607)- - Urine Nitrites neg Neg Urine pH 8 High 5-6 Total Protein, Urine neg Neg Urine Glucose norm Norm Urine Ketones neg' Neg Urobilinogen norm Norm Urine Bilirubin neg Neg Urine Blood about 250 + Neg Specific [place] n/a Low 1.01-1.02 Laboratory test 09/14/2010 [facility] Strep Screen NEG Neg finding (607)- - Laboratory test 08/17/2010 [facility] HCG DIP Test NEG Neg finding (607)- - Laboratory test 08/17/2010 [facility] HCG DIP Test neg Neg finding (607)- - Laboratory test 08/17/2010 [facility] TSH 0.91 MIU/ ML 0.34-5.60 finding [phone] Thyroxine Free 0.77 NG/ML 0.61-1.24 CBC With 07/30/2010 [facility] White Blood 6.6 CUMM 4.8-10.8 Electronic Diff [phone] Count Red Cell Count 4.30 CUMM 4.2-5.4 Hemoglobin 12.3 g/dL 12.0-16.0 Hematocrit 37 % 35-47 Mean Corpuscular Volume 86 um3 79-97 Mean Corpuscular Hemoglob 29 pg 27-31 Mean Corpuscular HGB Cone 34 g/dL 32-36 Redcell Distribution WDTH 14 % 10.5-15 Platelet Count 252 CUMM 150-450 Mean Platelet Volume 8.3 um3 7.4-10.4 Gran % 50.9 % 38-83 Lymph % 42.7 % 25-47 Mononuclear % 4.8 % 1-9 Eosinophil % 1.2 % 0-6 Basophil % 0.4 % 0-2 Abs Lymphs 2.8 1.0-4.8 Abs Mononuclear 0.3 0-0.8 Absolute Neutrophil Count 3.3 1.5-7.7 Abs Eosinophils 0.1 0-0.6 Abs Basophils 0 0-0.2 Laboratory test 07/30/2010 [facility] Vitamin B12 382 pg/mL 180-914 finding [phone] Vitamin D, 1,25 Dihydroxy 64 pg/mL 18-78 85 Basic Metabolic 07/30/2010 [facility] Sodium 141 mmol /L 135-145 Panel [phone] Potassium 4.0 mmol/L 3.5-5.0 Chloride 108 mmol/L 101-111 Co2 (Carbon Dioxide) 27.0 mmol/L 22-32 Anion Gap 6.0 mmol/L 2-11 86 Glucose 76 mg/dL 70-100 87 BUN 9 mg/dL 6-24 Creatinine 0.70 mg/dL 0.50-1.40 One Over Creatinine 1.40 BUN/Creatinine Ratio 12.9 8-20 Calcium 9.4 mg/dL 8.1-9.9 eGFR Non- 106.7 > 60 eGFR 129.1 > 60 88 Lipid Profile 05/31/2010 [facility] Triglyceride 109 mg/dL 40-200 (Trig/Chol/HDL) [phone] Cholesterol 189 mg/dL Less Than 200 89 High Density Lipoprotein 35 mg/dL Low 40-60 90 Cholesterol/HDL Ratio 5.40 AVERAGE High 1-4.44 Low Density Lipoprotein 132 mg/dL High Less Than 100 91 Laboratory test 10/15/2009 [facility] TSH 0.88 MIU/ ML 0.34-5.60 finding [phone] Comp Metabolic 10/15/2009 [facility] Sodium 134 mmol/ L Low 135-145 Panel [phone] Potassium 4.1 mmol/L 3.5-5.0 Chloride 105 mmol/L 101-111 Co2 (Carbon Dioxide) 25.0 mmol/L 22-32 Anion Gap 4.0 mmol/L 2-11 92 Glucose 73 mg/dL 70-100 93 BUN 7 mg/dL 6-24 Creatinine 0.40 mg/dL Low 0.50-1.40 One Over Creatinine 2.50 BUN/Creatinine Ratio 17.5 8-20 Calcium 9.2 mg/dL 8.1-9.9 94 Total Protein 5.8 GM/DL Low 6.2-8.1 Albumin 3.4 GM/DL Low 3.6-5.4 Globulin 2.4 GM/DL 2-4 Albumin/Globulin Ratio 1.4 1-3 Bilirubin Total 0.6 mg/dL 0.4-1.5 95 Alkaline Phosphatase 58 U/L 30-110 Alt (SGPT) 19 U/L 14-54 Ast (Sgot) 19 U/L 12-42 eGFR Non- 205.1 > 60 eGFR 248.1 > 60 96 CBC With 10/15/2009 [facility] White Blood 8.0 CUMM 4.8-10.8 Electronic Diff [phone] Count Red Cell Count 3.93 CUMM Low 4.2-5.4 Hemoglobin 12.5 g/dL 12.0-16.0 Hematocrit 36 % 35-47 Mean Corpuscular Volume 92 um3 79-97 Mean Corpuscular Hemoglob 32 pg High 27-31 Mean Corpuscular HGB Cone 34 g/dL 32-36 Redcell Distribution WDTH 12 % 10.5-15 Platelet Count 205 CUMM 150-450 Mean Platelet Volume 8.2 um3 7.4-10.4 Gran % 64.2 % 38-83 Lymph % 28.6 % 25-47 Mononuclear % 5.5 % 1-9 Eosinophil % 1.3 % 0-6 Basophil % 0.4 % 0-2 Abs Lymphs 2.3 1.0-4.8 Abs Mononuclear 0.4 0-0.8 Absolute Neutrophil Count 5.1 1.5-7.7 Abs Eosinophils 0.1 0-0.6 Abs Basophils 0 0-0.2 Urine DIP 08/13/2009 In House Lab Leukocytes ++ Neg (607)- - Urine Nitrites NEG Neg Urine pH 7 High 5-6 Total Protein, Urine NEG Neg Urine Glucose NORM Norm Urine Ketones NE Neg Urobilinogen NORM Norm Urine Bilirubin NEG Neg Urine Blood NEG Neg Specific [place] N/A Low 1.01-1.02 Laboratory test 08/13/2009 [facility] House Lab HCG DIP Test POS Neg finding (607)- - CBC With Manual 08/07/2009 [facility] White Blood 5.1 CUMM 4.8-10.8 Diff [phone] Count Red Cell Count 4.12 CUMM Low 4.2-5.4 Hemoglobin 13.1 g/dL 12.0-16.0 Hematocrit 39 % 35-47 Mean Corpuscular Volume 94 um3 79-97 Mean Corpuscular Hemoglob 32 pg High 27-31 Mean Corpuscular HGB Cone 34 g/dL 32-36 Redcell Distribution WDTH 13 % 10.5-15 Platelet Count 163 CUMM 150-450 Mean Platelet Volume 9.3 um3 7.4-10.4 Polysegmented Neutrophil 54 % 38-83 Lymphocyte 41 % 25-47 Monocyte 3 % 0-13 Atypical Lymph 2 % 0-6 Absolute Neutrophil Count 2.7 Anisocytosis SLIGHT Lipid Profile 08/07/2009 [facility] Triglyceride 50 mg/dL 40-200 (Trig/Chol/HDL) [phone] Cholesterol 167 mg/dL Less Than 200 97 High Density Lipoprotein 45 mg/dL 40-60 98 Cholesterol/HDL Ratio 3.71 AVERAGE 1-4.44 Low Density Lipoprotein 112 mg/dL High Less Than 100 99 Laboratory test 03/30/2009 [facility] Cancelled Test SEE COMMENT 100 finding [phone] Mumps/Measles/Rub 03/30/2009 [facility] Mumps Titer Igg 1.23 Index AB 101 richi [phone] AB Rubella Titer Igg AB 26.7 IU/mL 102 Rubeola Titer Igg AB 1.66 Index AB 103 CBC With Manual 02/23/2009 [facility] White Blood 5.5 CUMM 4.8-10.8 Diff [phone] Count Red Cell Count 4.35 CUMM 4.2-5.4 Hemoglobin 13.5 g/dL 12.0-16.0 Hematocrit 40 % 35-47 Mean Corpuscular Volume 92 um3 79-97 Mean Corpuscular Hemoglob 31 pg 27-31 Mean Corpuscular HGB Cone 34 g/dL 32-36 Redcell Distribution WDTH 13 % 10.5-15 Platelet Count 187 CUMM 150-450 Mean Platelet Volume 9.6 um3 7.4-10.4 Polysegmented Neutrophil 52 % 38-83 Lymphocyte 33 % 25-47 Monocyte 1 % 0-13 Eosenophil 1 % 0-6 Atypical Lymph 13 % High 0-6 Absolute Neutrophil Count 2.8 Anisocytosis SLIGHT Polychromasia SLIGHT Laboratory test 02/23/2009 In House Lab HCG DIP Test neg Neg finding (607)- - Laboratory test 02/23/2009 [facility] Glucose 74 mg/ dL 70-100 104 finding [phone] TSH 1.74 MIU/ML 0.34-5.60 1 SEE RESULT BELOW Name: SANTA ZAPIEN Annemarie : [address]: Dilcia Leonard MD Acct: [id number] Unit: [id number] AGE: 33 Location: [facility] Re11/02/18 SEX: F Status: REG REF SPEC: [id number] NITA: 11/02/18-[address] [facility] [address]: Dilcia Leonard MD REQ: [id number] RECD: 11/02/18 STATUS: ALEXIS JULIAN DR: Antionette Kyle MD _ ORDERED: TP IMAGE ANALYS, HPV/Thin Prep COMMENTS: [id number] Negative for Intraepithelial lesion or Malignancy Date Time Test Result Flag (u) Normal Range 11/02/18 1250 @ HPV RNA Negative Negative @ @ The high-risk HPV types detected by the assay include: 16, @ 18, 31, 33, 35, 39, 45, 51, 52, 56, 58, 59, 66, and 68. A. Ectocervical/Endocervical Specimen Adequacy: Satisfactory of evaluation Transformation zone component not identified Patient Information: HPV: High risk HPV RNA testing regardless of pap results. Actual Specimen Date: 11/02/18 Last Menstrual Date: 10/06/19 Date of Last Specimen: 09/11/17 Signed by and Reported on: BREEZY Jha(ASCP) [id number] This Pap test was evaluated with the assistance of the Lecture[employer] Test Imaging System. Due to cytologic findings at the rib bender microscope, comprehensive manual rescreening by a Bending Machine Set Up Operator may be required. The Pap Smear is a screening test designed to aid in the detection of premalignant and malignant conditions of the uterine cervix. It is not a diagnostic procedure and should not be used as the sole means of detecting cervical cancer. Both false- positive and false- negative reports do occur. Depending on your risk status, a Pap smear should be obtained and evaluated every 1-3 years. END OF REPORT DEPARTMENT OF PATHOLOGY, [address] [place] [address] Jasiel Ballesteros M.D. Director [facility] # [id number] 2 Interpretation: Weak Positive (1.1-2.9) REFERENCE VALUE <=1.0 (Negative) 3 REFERENCE VALUE <20.0 (Negative) 4 Tests for antibodies to dsDNA and MARILU antigens are not performed automatically unless the DRE result is > or= 3.0 U. Studies performed at [facility] indicate that positive DRE results <3.0 U are rarely accompanied by positive second order tests. Test Performed by: [address] [address] 5 Performed by [employer], [address] [place] [address] [email or web address], Kiel Royal MD - Lab. Director Test Performed by: [employer] [address] [place] [address] 6 Female reference ranges for Progesterone: Follicular phase.......0.3 - 1.5 ng/ml Mid-luteal phase.......5.2 - 18.5 ng/ml Postmenopausal.........< 0.8 ng/ml 1st trimester.........4.7 - 50.0 ng/ml 2nd trimester.........19.4 - 45.3 ng/ml 7 ADDITIONAL INFORMATION Testing performed by [facility]. This test was developed and its performance characteristics determined by [facility] in a manner consistent with CLIA requirements. This test has not been cleared or approved by the U.S. Food and Drug Administration. 8 ADDITIONAL INFORMATION Testing performed by Liquid Chromatography-Tandem Mass Spectrometry (LC-MS/MS). This test was developed and its performance characteristics determined by [facility] in a manner consistent with CLIA requirements. This test has not been cleared or approved by the U.S. Food and Drug Administration. Test Performed by: [facility] - [address] [address] 9 ADDITIONAL INFORMATION This test was developed and its performance characteristics determined by [facility] in a manner consistent with CLIA requirements. This test has not been cleared or approved by the U.S. Food and Drug Administration. Test Performed by: [facility] [place] [address] 10 Estradiols <40 pg/mL are sent to a reference lab for low range testing. Postmenopausal Females < 20 Ovulating females: by day in cycle relative to LH Peak Follicular phase - 12 10-50 - 4 60-200 Mid-cycle - 1 120-375 Luteal phase + 2 50-155 + 6 60-260 + 12 15-115 11 [id number] 15 Normal Range 180 to 914 Indeterminate Range 145 to 180 Deficient Range <145 16 [id number] 17 Desirable: <150 Borderline High: 150-199 High: 200-499 Very High: >500 18 Desirable: <200 Borderline High: 200-239 High: >239 19 Low: <40 Desirable: 40-60 High: >60 20 Desirable: <100 Near Optimal: 100-129 Borderline High: 130-159 High: 160-189 Very High: >189 21 SEE RESULT BELOW Name: SANTA ZAPIEN : [address]: Reg Lopez MD Acct: [id number] Unit: [id number] AGE: 31 Location: ED Re11/24/16 SEX: F Status: DEP ER SPEC: [id number] NITA: 11/24/[address] [facility] [address]: Reg Lopez MD REQ: [id number] RECD: 11/24/16 STATUS: YOJANA JULIAN DR: Antionette Kyle MD _ SOURCE: URINE SPDESC: ORDERED: Urine Culture Procedure Result Reported Site Urine Culture Final 11/26/16- 0843 ML No growth of clinically significant organisms * ML - MAIN LAB ([facility]) . END OF REPORT * ML=Testing performed at Main Lab DEPARTMENT OF PATHOLOGY, [address] [place] [address] Jasiel Ballesteros M.D. Director [facility] # [id number] 22 <5.0 Negative 5.0 - 25.0 Indeterminate (Repeat testing recommended after 72 hours) >25.0 Positive Perimenopausal women can display HCG levels of up to 20 mIU/mL 23 Because ethnic data is not always readily available, this report includes an eGFR for both -Americans and non- Americans. The National Kidney Disease Education Program (NKDEP) does not endorse the use of the MDRD equation for patients that are not between the ages of 18 and 70, are , have extremes of body size, muscle mass, or nutritional status, or are non- or non-. According to the National Kidney Foundation, irrespective of diagnosis, the stage of the disease is based on the level of kidney function: Stage Description GFR(mL/min/1.73 m(2)) 1 Kidney damage with normal or decreased GFR 90 2 Kidney damage with mild decrease in GFR 60-89 3 Moderate decrease in GFR 30-59 4 Severe decrease in GFR 15-29 5 Kidney failure <15 (or dialysis) 24 Because ethnic data is not always readily available, this report includes an eGFR for both -Americans and non- Americans. The National Kidney Disease Education Program (NKDEP) does not endorse the use of the MDRD equation for patients that are not between the ages of 18 and 70, are , have extremes of body size, muscle mass, or nutritional status, or are non- or non-. According to the National Kidney Foundation, irrespective of diagnosis, the stage of the disease is based on the level of kidney function: Stage Description GFR(mL/min/1.73 m(2)) 1 Kidney damage with normal or decreased GFR 90 2 Kidney damage with mild decrease in GFR 60-89 3 Moderate decrease in GFR 30-59 4 Severe decrease in GFR 15-29 5 Kidney failure <15 (or dialysis) 25 Normal Range 180 to 914 Indeterminate Range 145 to 180 Deficient Range <145 26 Test Performed by: [employer]. [address] [place] [address] 27 Normal Range 180 to 914 Indeterminate Range 145 to 180 Deficient Range <145 28 [id number] 29 Normal Range 180 to 914 Indeterminate Range 145 to 180 Deficient Range <145 30 [id number] 31 [id number] 32 SEE RESULT BELOW Name: SANTA ZAPIEN : [address]: Antionette Kyle MD Acct: [id number] Unit: [id number] AGE: 30 Location: [facility] Re11/02/15 SEX: F Status: REG REF SPEC: [id number] NITA: 11/02/15-[address] [facility] [address]: Antionette Kyle MD REQ: [id number] RECD: 11/02/15 STATUS: SOUT _ ORDERED: LEVEL IV/2 FINAL DIAGNOSIS 1. Skin, left chest, excision: -- Hemangioma. 2. Skin, left neck, excision: -- Verruca vulgaris. CLINICAL HISTORY No history given GROSS DESCRIPTION 1. The specimen is received in formalin with no source identified and a requisition labeled, Left Chest, and consists of a 0.5 x 0.3 x 0.3 cm baum-matta wrinkled polypoid skin fragment, which is inked, bisected and submitted entirely in one cassette. 2. The specimen is received in formalin with no source identified and a requisition labeled, Left Neck, and consists of three baum-matta wrinkled polypoid skin fragments averaging 0.3 x 0.3 x 0.3 cm, which are submitted entirely in one cassette. Signed (signature on file) Jasiel Ballesteros MD 1145 END OF REPORT * ML=Testing performed at Main Lab DEPARTMENT OF PATHOLOGY, [address] [place] [address] Jasiel Ballesteros M.D. Director [facility] # [id number] 33 Desirable <150 Borderline high 150-199 High 200-499 Very High >500 34 Desirable <200 Borderline high 200-239 High >239 35 Low <40 Desirable: 40-60 High: >60 36 Desirable: <100 mg/dL Near Optimal: 100-129 mg/dL Borderline High: 130-159 mg/dL High: 160-189 mg/dL Very High: >189 mg/dL 37 Acute inflammation: >10.00 38 Because ethnic data is not always readily available, this report includes an eGFR for both -Americans and non- Americans. The National Kidney Disease Education Program (NKDEP) does not endorse the use of the MDRD equation for patients that are not between the ages of 18 and 70, are , have extremes of body size, muscle mass, or nutritional status, or are non- or non-. According to the National Kidney Foundation, irrespective of diagnosis, the stage of the disease is based on the level of kidney function: Stage Description GFR(mL/min/1.73 m(2)) 1 Kidney damage with normal or decreased GFR 90 2 Kidney damage with mild decrease in GFR 60-89 3 Moderate decrease in GFR 30-59 4 Severe decrease in GFR 15-29 5 Kidney failure <15 (or dialysis) 39 Acute inflammation: >10.00 40 PATIENT IS 41 *Ascorbic acid is present which may interfere with detection of blood. 42 SEE RESULT BELOW Name: SANTA ZAPIEN : [address]: Azucena Castillo MD Acct: [id number] Unit: [id number] AGE: 30 Location: LAB Re05/13/15 SEX: F Status: REG REF SPEC: [id number] NITA: 05/13/15-[address]: Azucena Castillo MD REQ: [id number] RECD: 05/13/15-1210 EXPLICIT FAX#: [phone] STATUS: YOJANA JULIAN DR: Antionette Kyle MD _ SOURCE: URINE SPDESC: ORDERED: Urine Culture Procedure Result Verified Site Urine Culture Final 05/15/15- 0857 ML Organism 1 NORMAL LINDY Flat Top Count 50-75,000 (Many) CFU/ML * ML - MAIN LAB ([facility]) . END OF REPORT * ML=Testing performed at Main Lab DEPARTMENT OF PATHOLOGY, [address] [place] [address] Jasiel Ballesteros M.D. Director [facility] # [id number] 43 Because ethnic data is not always readily available, this report includes an eGFR for both -Americans and non- Americans. The National Kidney Disease Education Program (NKDEP) does not endorse the use of the MDRD equation for patients that are not between the ages of 18 and 70, are , have extremes of body size, muscle mass, or nutritional status, or are non- or non-. According to the National Kidney Foundation, irrespective of diagnosis, the stage of the disease is based on the level of kidney function: Stage Description GFR(mL/min/1.73 m(2)) 1 Kidney damage with normal or decreased GFR 90 2 Kidney damage with mild decrease in GFR 60-89 3 Moderate decrease in GFR 30-59 4 Severe decrease in GFR 15-29 5 Kidney failure <15 (or dialysis) 44 SEE RESULT BELOW Name: SANTA ZAPIEN : [address]: Nathaniel Patel MD Acct: [id number] Unit: [id number] AGE: 29 Location: ED Re04/02/15 SEX: F Status: DEP ER SPEC: [id number] NITA: 04/02/15-[address] [facility] [address]: Nathaniel Patel MD REQ: [id number] RECD: 04/02/15 STATUS: YOJANA JULIAN DR: Ana Manzano STEM ASSEMBLER _ SOURCE: URINE SPDESC: ORDERED: Urine Culture Procedure Result Verified Site Urine Culture Final 04/04/15- 1022 ML Organism 1 NORMAL LINDY Flat [place] Count >100,000 (Many) CFU/ML * ML - MAIN LAB ([facility]) . END OF REPORT * ML=Testing performed at Main Lab DEPARTMENT OF PATHOLOGY, [facility] [employer] [place], [place] [address] Jasiel Ballesteros M.D. Director [facility] # [id number] 45 RUN DATE: 01/16/15 [facility] LAB LIVE PAGE 1 RUN TIME: 827 [facility] [employer] [place], [place] [address] Specimen Inquiry Name: SANTA ZAPIEN : [address]: Ana Manzano NP Acct: [id number] Unit: [id number] AGE: 29 Location: [facility] Re01/14/15 SEX: F Status: REG REF SPEC: [id number] NITA: 01/14/15-[address]: Ana Manzano NP REQ: [id number] RECD: 01/14/15 STATUS: COMP _ SOURCE: VAGINAL SPDESC: ORDERED: Genital Culture QUERIES: Provider Requisition # [id number] Procedure Result Verified Site Genital Culture Final 01/16/15- 0828 ML Organism 1 STREP GROUP B Quantity 1+ Organism 2 TRACEY VAGINALIS - PRESUMPTIVE Quantity 2+ Susceptibility testing of penicillins and other B-lactams approved by FDA for treatment of Streptococcus pyogenes (Group A Strep) and Streptococcus agalactiae (Group B Strep) is not necessary for clinical purposes and need not be done routinely, since as with vancomycin, resistant strains have not been recognized. (CLSI J286-W28;p.66) Positive isolates will be saved for one week. Please call the Microbiology Laboratory if further susceptibility testing is needed. * ML - MAIN LAB ([facility]) . END OF REPORT * ML=Testing performed at Main Lab DEPARTMENT OF PATHOLOGY, [address] [place] [address] Jasiel Ballesteros M.D. Director [facility] # [id number] 46 Because ethnic data is not always readily available, this report includes an eGFR for both -Americans and non- Americans. The National Kidney Disease Education Program (NKDEP) does not endorse the use of the MDRD equation for patients that are not between the ages of 18 and 70, are , have extremes of body size, muscle mass, or nutritional status, or are non- or non-. According to the National Kidney Foundation, irrespective of diagnosis, the stage of the disease is based on the level of kidney function: Stage Description GFR(mL/min/1.73 m(2)) 1 Kidney damage with normal or decreased GFR 90 2 Kidney damage with mild decrease in GFR 60-89 3 Moderate decrease in GFR 30-59 4 Severe decrease in GFR 15-29 5 Kidney failure <15 (or dialysis) 47 This test detects intact HCG only and is indicated for the early detection of . 48 This test detects intact HCG only and is indicated for the early detection of . 49 Maria Dolores Lopez 50 REFERENCE VALUE 25-HYDROXY D TOTAL (D2+D3) Optimum levels in the healthy population are 20-50, patients with bone disease may benefit from higher levels within this range. Test Performed by: [place] [address] Director Emergency Services: Dean Garcia M.D. 51 Normal Range 180 to 914 Indeterminate Range 145 to 180 Deficient Range <145 52 Desirable <150 Borderline high 150-199 High 200-499 Very High >500 53 Desirable <200 Borderline high 200-239 High >239 54 Low <40 Desirable: 40-60 High: >60 55 Desirable <100 Near Optimal 100-129 Borderline high 130-159 High 160-189 Very High >189 56 This test detects intact HCG only and is indicated for the early detection of . 57 Test Performed by: [address] [address] Director Emergency Services: Gabriel Reid III, M.D. 58 No bands detected 59 Specific serologic response to B. burgdorferi infection is not detected, but cannot rule out early infection during which low or undetectable antibody levels to B. burgdorferi may be present. If clinically indicated, a new serum specimen should be submitted in 7-14 days. CDC criteria require >=5 bands for IgG or >=2 bands for IgM for the Immunoblot to be considered positive. Bands (e.g.,p41) may be detected in patients without Lyme disease, and patterns not meeting the CDC criteria should be interpreted with caution. Immunoblot should be ordered only on specimens that are positive or equivocal by a FDA-licensed Lyme disease antibody screening test (e.g., EIA). Test Performed by: [place] [address] Director Emergency Services: Gabriel Reid III, M.D. 60 Test Performed by: [place] [address] Director Emergency Services: Gabriel Reid III, M.D. 61 -- REFERENCE VALUE -- <1.0 (Negative) Test Performed by: [place] [address] Director Emergency Services: Gabriel Reid III, M.D. 62 -- REFERENCE VALUE -- <1.0 (Negative) Test Performed by: [place] [address] Director Emergency Services: Gabriel Reid III, M.D. 63 -- REFERENCE VALUE -- <20.0 (Negative) Test Performed by: [place] [address] Director Emergency Services: Gabriel Reid III, M.D. 64 -- REFERENCE VALUE -- <1.0 (Negative) 65 -- REFERENCE VALUE -- <1.0 (Negative) Test Performed by: [place] [address] Director Emergency Services: Gabriel Reid III, M.D. 66 -- REFERENCE VALUE -- <1.0 (Negative) Test Performed by: [place] [address] Director Emergency Services: Gabriel Reid III, M.D. 67 This test detects intact HCG only and is indicated for the early detection of . 68 RUN DATE: 01/14/14 [facility] LAB LIVE PAGE 1 RUN TIME: [address] [place] [address] Specimen Inquiry Name: SANTA ZAPIEN Annemarie : [address]: Antionette Kyle MD Acct: [id number] Unit: [id number] AGE: 28 Location: [facility] Re01/13/14 SEX: F Status: REG REF SPEC: [id number] NITA: 01/13/14-[address] [facility] [address]: Antionette Kyle MD REQ: [id number] RECD: 01/13/14 STATUS: SOUT _ ORDERED: IMAGE ANALYSIS FINAL DIAGNOSIS Negative for Intraepithelial lesion or Malignancy A. Ectocervical/Endocervical Specimen Adequacy: Satisfactory of evaluation Transformation zone component identified Patient Information: HPV: Thin Layer Pap Test w/reflex to high risk HPV DNA testing when ASCUS Actual Specimen Date: 01/13/14 Last Menstrual Date: 01/11/14 Signed (signature on file) BREEZY Anderson (ASCP) 01/14/14 6528 This Pap test was evaluated with the assistance of the [employer] Test Imaging System. Due to cytologic findings at the rib bender microscope, comprehensive manual rescreening by a Bending Machine Set Up Operator may be required. The Pap Smear is a screening test designed to aid in the detection of premalignant and malignant conditions of the uterine cervix. It is not a diagnostic procedure and should not be used as the sole means of detecting cervical cancer. Both false- positive and false- negative reports do occur. Depending on your risk status, a Pap smear shoudl be obtained and evaluated every 1-3 years. END OF REPORT * ML=Testing performed at Main Lab DEPARTMENT OF PATHOLOGY, [address] [place] [address] Jasiel Ballesteros M.D. Director [facility] Permit #[id number] 69 Because ethnic data is not always readily available, this report includes an eGFR for both -Americans and non- Americans. The National Kidney Disease Education Program (NKDEP) does not endorse the use of the MDRD equation for patients that are not between the ages of 18 and 70, are , have extremes of body size, muscle mass, or nutritional status, or are non- or non-. According to the National Kidney Foundation, irrespective of diagnosis, the stage of the disease is based on the level of kidney function: Stage Description GFR(mL/min/1.73 m(2)) 1 Kidney damage with normal or decreased GFR 90 2 Kidney damage with mild decrease in GFR 60-89 3 Moderate decrease in GFR 30-59 4 Severe decrease in GFR 15-29 5 Kidney failure <15 (or dialysis) 70 HDL Interpretation: Undesirable: High Risk: Less than 40 mg/dL Desirable: Low Risk: Greater than 60 mg/dL 71 LDL Interpretation: Low Risk Optimal Level: LDL Less than 100 mg/dL Near or Above Optimal: LDL 100-129 mg/dL Borderline High Risk: LDL 130-159 mg/dL High Risk: LDL 160-189 mg/dL Very High Risk: LDL Greater than 189 mg/dL 72 No bands detected 73 Consistent with early infection with Borrelia burgdorferi. A new serum specimen should be submitted in 14-21 days to demonstrate seroconversion of IgG. IgM blot criteria is of diagnostic utility only during the first 4 weeks of early Lyme disease. CDC criteria require >=5 bands for IgG or >=2 bands for IgM for the Immunoblot to be considered positive. Bands (e.g.,p41) may be detected in patients without Lyme disease, and patterns not meeting the CDC criteria should be interpreted with caution. Immunoblot should be ordered only on specimens that are positive or equivocal by a FDA-licensed Lyme disease antibody screening test (e.g., EIA). Test Performed by: [place] [address] Director Emergency Services: Gabriel Reid III, M.D. 74 Because ethnic data is not always readily available, this report includes an eGFR for both -Americans and non- Americans. The National Kidney Disease Education Program (NKDEP) does not endorse the use of the MDRD equation for patients that are not between the ages of 18 and 70, are , have extremes of body size, muscle mass, or nutritional status, or are non- or non-. According to the National Kidney Foundation, irrespective of diagnosis, the stage of the disease is based on the level of kidney function: Stage Description GFR(mL/min/1.73 m(2)) 1 Kidney damage with normal or decreased GFR 90 2 Kidney damage with mild decrease in GFR 60-89 3 Moderate decrease in GFR 30-59 4 Severe decrease in GFR 15-29 5 Kidney failure <15 (or dialysis) 75 * MALES: < 5.0 MIU/ML NON FEMALES < 5.0 MIU/ML APPROX GESTATIONAL AGE APPROX HCG RANGE 0-1 WEEK < 5.0-50 1-2 WEEKS 50-500 2-3 WEEKS 100-5000 3-4 WEEKS 500-10,000 1-2 MONTHS 10,000-200,000 2-3 MONTHS 15,000-100,000 PLEASE NOTE: The intended use of this assay is the quantitative determination of HCG in human serum or plasma for the early detection of . These assays should not be used to diagnose any condition unrelated to . If an HCG level is inconsistent with, or unsupported by, clinical evidence, results should be confirmed by an alternate HCG method. . 76 THERAPEUTIC TARGET FOR THE TREATMENT OF DIABETES MELLITUS PATIENTS IS <7% HBA1C, AND IN SELECTIVE PATIENTS <6.0%. PLEASE REFER TO [place] [employer] DIABETIC CARE GUIDELINES FOR FURTHER INFORMATION. 77 Anion gap measurement may be of limited value in the presence of any alkalosis, especially in a combined acid base disorder. . 78 A metabolite of Naproxen, O-desmethylnaproxen, has been shown to interfere with the [place] method for measuring total bilirubin. Samples from patients who have taken Naproxen have shown spurious elevation in total bilirubin levels. 79 Because ethnic data is not always readily available, this report includes an eGFR for both -Americans and non- Americans. The National Kidney Disease Education Program (NKDEP) does not endorse the use of the MDRD equation for patients that are not between the ages of 18 and 70, are , have extremes of body size, muscle mass, or nutritional status, or are non- or non-. According to the National Kidney Foundation, irrespective of diagnosis, the stage of the disease is based on the level of kidney function: Stage Description GFR(mL/min/1.73 m(2)) 1 Kidney damage with normal or decreased GFR 90 2 Kidney damage with mild decrease in GFR 60-89 3 Moderate decrease in GFR 30-59 4 Severe decrease in GFR 15-29 5 Kidney failure <15 (or dialysis) 80 Negative in normal Individuals. May be negative in dermatitis herpatiformis or celiac disease patients adhering to a gluten free diet. Laboratory developed test. Test Performed by: [facility] Dpt of Lab Med and Pathology [address] [place] [address] Director Emergency Services: Gabriel Reid III, M.D. 81 -- REFERENCE VALUE -- <20.0 (Negative) 82 -- REFERENCE VALUE -- <20.0 (Negative) Test Performed by: [facility] Dpt of Lab Med and Pathology [address] [place] [address] Director Emergency Services: Gabriel Reid III, M.D. 83 Test Performed by: [facility] Dpt of Lab Med and Pathology [address] [place] [address] Director Emergency Services: Gabriel Reid III, M.D. 84 -- REFERENCE VALUE -- 25-HYDROXY D TOTAL (D2+D3) Optimum levels in the normal population are 25-80 Test Performed by: [facility] Dpt of Lab Med and Pathology [address] [place] [address] Director Emergency Services: Gabriel Reid III, M.D. 85 Test Performed by: [facility] Dpt of Lab Med and Pathology [address] [place] [address] Director Emergency Services: Gabriel Reid III, M.D. 86 Anion gap measurement may be of limited value in the presence of any alkalosis, especially in a combined acid base disorder. . 87 Note change in reference range as of 06/05/08. The change was based on recommendations from the [place] [employer]. 88 Because ethnic data is not always readily available, this report includes an eGFR for both -Americans and non- Americans. The National Kidney Disease Education Program (NKDEP) does not endorse the use of the MDRD equation for patients that are not between the ages of 18 and 70, are , have extremes of body size, muscle mass, or nutritional status, or are non- or non-. According to the National Kidney Foundation, irrespective of diagnosis, the stage of the disease is based on the level of kidney function: Stage Description GFR(mL/min/1.73 m(2)) 1 Kidney damage with normal or decreased GFR 90 2 Kidney damage with mild decrease in GFR 60-89 3 Moderate decrease in GFR 30-59 4 Severe decrease in GFR 15-29 5 Kidney failure <15 (or dialysis) 89 CHOLESTEROL INTERPRETATION: Desirable: Less than 200 MG/DL Borderline-High Risk: 200-239 MG/DL High-Risk: 240 MG/DL and over 90 HDL INTERPRETATION: Undesirable: High Risk: Less than 40 MG/DL Desirable: Low Risk: Greater than 60 MG/DL 91 LDL INTERPRETATION: Low Risk Optimal Level: LDL Less than 100 MG/DL Near or Above Optimal: LDL 100-129 MG/DL Borderline High Risk: LDL 130-159 MG/DL High Risk: LDL 160-189 MG/DL Very High Risk: LDL Greater than 189 MG/DL 92 Anion gap measurement may be of limited value in the presence of any alkalosis, especially in a combined acid base disorder. . 93 Note change in reference range as of 06/05/08. The change was based on recommendations from the [place] [employer]. 94 Please note change in reference range effective 08 . 95 A metabolite of Naproxen, O-desmethylnaproxen, has been shown to interfere with the [place] method for measuring total bilirubin. Samples from patients who have taken Naproxen have shown spurious elevation in total bilirubin levels. 96 Because ethnic data is not always readily available, this report includes an eGFR for both -Americans and non- Americans. The National Kidney Disease Education Program (NKDEP) does not endorse the use of the MDRD equation for patients that are not between the ages of 18 and 70, are , have extremes of body size, muscle mass, or nutritional status, or are non- or non-. According to the National Kidney Foundation, irrespective of diagnosis, the stage of the disease is based on the level of kidney function: Stage Description GFR(mL/min/1.73 m(2)) 1 Kidney damage with normal or decreased GFR 90 2 Kidney damage with mild decrease in GFR 60-89 3 Moderate decrease in GFR 30-59 4 Severe decrease in GFR 15-29 5 Kidney failure <15 (or dialysis) 97 CHOLESTEROL INTERPRETATION: Desirable: Less than 200 MG/DL Borderline-High Risk: 200-239 MG/DL High-Risk: 240 MG/DL and over 98 HDL INTERPRETATION: Undesirable: High Risk: Less than 40 MG/DL Desirable: Low Risk: Greater than 60 MG/DL 99 LDL INTERPRETATION: Low Risk Optimal Level: LDL Less than 100 MG/DL Near or Above Optimal: LDL 100-129 MG/DL Borderline High Risk: LDL 130-159 MG/DL High Risk: LDL 160-189 MG/DL Very High Risk: LDL Greater than 189 MG/DL 10 The following test(s) has been cancelled with a brief explanation 0 for the cancellation: Duplicate order, see lab number [id number]. 10 < .90 Neg (No Immunity) 1 .91- 1.09 Equivocal >=1.10 Positive . 10 Negative(Nonimmune): < 5.0 2 Equivocal: 5.0 - 10.0 Positive(Immune): > 10.0 10 < 0.90 Neg (No Immunity) 3 0.91- 1.09 Equivocal >=1.10 Positive . 10 Note change in reference range as of 06/05/08. The 4 change was based on recommendations from the [place] [employer]. Procedures Description No Information Available Encounters Type Date Location Provider Dx Diagnosis Office Visit 02/12/2018 11:15a Main Office Antionette Kyle M.D., R53.83 Other fatigue R.D. E55.9 Vitamin D deficiency, unspecified M79.669 Pain in unspecified lower leg E83.42 Hypomagnesemia N92.0 Excessive and frequent menstruation with regular cycle Office Visit 10/26/2017 2:00p Main Office Shawnti R. 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 unspecified E55.9 Vitamin D deficiency, unspecified D51.9 Vitamin B12 deficiency anemia, unspecified D64.9 Anemia, unspecified Office Visit 01/20/2017 1:30p Main Office Donald Guerrero Anxiety Doris cano, R.D. unspecified S06.0x0A Concussion without loss of consciousness, initial encounter Office Visit 11/28/2016 3:15p Main Office Donald Guerrero Anxiety disorderDoris, R.D. unspecified E55.9 Vitamin D deficiency, unspecified D51.9 Vitamin B12 deficiency anemia, unspecified S06.0x0A Concussion without loss of consciousness, initial encounter S09.90xA Unspecified injury of head, initial encounter Office Visit 08/17/2016 11:00a Main Office Donald Guerrero Anxiety Doris cano, R.D. unspecified E55.9 Vitamin D deficiency, unspecified D51.9 Vitamin B12 deficiency anemia, unspecified D64.9 Anemia, unspecified Office Visit 06/15/2016 12:15p Main Office Donald Guerrero Anxiety Doris cano, R.D. unspecified M79.606 Pain in leg, unspecified E55.9 Vitamin D deficiency, unspecified D51.9 Vitamin B12 deficiency anemia, unspecified D64.9 Anemia, unspecified Office Visit 05/16/2016 3:30p Main Office Karyn Guerrero.606 Pain in leg, M.D., R.D. unspecified F41.9 Anxiety disorder, unspecified N92.4 Excessive bleeding in the premenopausal period M54.5 Low back pain Office Visit 04/28/2016 1:30p Main Office Alee Betancourt B34.9 Viral infection, Storm, [employer]STRUCTION [employer]IVER[employer] unspecified Office Visit 02/12/2016 2:30p Main Office Ana Manzano, R10.9 Unspecified [employer] abdominal pain N91.2 Amenorrhea, unspecified Office Visit 12/30/2015 4:00p Main Office Antionette Kyle, R00.1 Bradycardia, M.D., R.D. unspecified D48.5 Neoplasm of uncertain behavior of skin Office Visit 11/02/2015 2:30p Main Office Antionette Kyle, L91.8 Other hypertrophic M.D., R.D. 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 Symptoms Other 790.6 Abnormal Blood Chemistry Other Office Visit 01/13/2014 2:45p Main Office Antionette Kyle, 789.9 Abdomen & Pelvis M.D., R.D. Symptoms Other 787.91 Diarrhea 787.01 Nausea W/ Vomiting Office Visit 01/03/2014 1:45p Main Office Antionette Kyle, 789.9 Abdomen & Pelvis M.D., R.D. Symptoms Other 782.1 Rash & Other Nonspec Skin Eruption Office Visit 07/17/2013 12:30p Main Office Antionette Kyle, 088.81 Lyme Disease Doris, R.D. Office Visit 06/27/2013 10:45a Main Office Antionette Kyle, 251.2 Hypoglycemia Other M.Moy., R.D. Unspec 729.5 Pain In Limb 787.02 Nausea Alone Office Visit 11/07/2012 11:45a Main Office Antionette Kyle, 311 Depressive Disorder M.D., R.D. Not Elsewhere Spec 300.02 Anxiety Disorder Generalized 692.9 Dermatitis Unspec Cause Due To Spec Agents Other Office Visit 10/30/2012 1:30p Main Office Alee Betancourt 691.8 Dermatitis Atopic & Storm, [employer]STRUCTION [employer] Related Conditions Other Office Visit 08/15/2012 11:30a Main Office Ana Manzano, V65.5 Person W / Feared [employer]STRUCTION [employer] Complaint In Whom No Diagnosis Was Made Office Visit 05/16/2012 12:30p Main Office Antionette Klye, 300.02 Anxiety Disorder M.Moy., R.D. Generalized 790.21 Impaired Fasting Glucose 780.93 Memory Loss 701.9 Skin Tags 611.9 Breast Disorders Unspec Office Visit 10/20/2011 2:15p Main Office Antionette Kyle, 789.9 Abdomen & Pelvis M.D., R.D. 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 Not Elsewhere Spec 300.02 Anxiety Disorder Generalized 272.2 Hyperlipidemia Mixed Office Visit 10/13/2009 11:00a Main Office Jennifer FranksGilberto 386.10 Vertigo Peripheral [facility] 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 Chemistry Other 783.1 Weight Gain Abnormal 995.3 Allergy Unspec 461.1 Sinusitis Acute Frontal 300.02 Anxiety Disorder Generalized 311 Depressive Disorder Not Elsewhere Spec V65.5 Person W/ Feared Complaint In Whom No Diagnosis Was Made Office Visit 01/12/2009 11:00a Main Office Antionette Kyle M.D., 995.3 Allergy Unspec R.D. 461.1 Sinusitis Acute Frontal 300.02 Anxiety Disorder Generalized 311 Depressive Disorder Not Elsewhere Spec 790.99 Blood Examination Other Nonspecific Findings Plan of Treatment 01/18/2019 - Bimal Sheikh MDI95.1 Orthostatic hypotensionComments:There seems to be a mixture of causes of vertigo. I do think she is having some benign positional vertigo at times, but not currently.She also has very soft blood pressures and a lot of historical evidence of moderate dehydration on a regular basis.We discussed some measures to increase her effectiveblood volume and hopefully help control the symptoms. I am also hopeful that the hormone regulationfrom the mini pill will be helpful.Recommendations:-More salt, more water -Could try compression stockings -Exercise
[2019-02-11] MEDS ORDERED: PROCHLORPERAZINE INJ 5 MG/ML 2 ML VIAL IV ONE (22:39)
[2019-02-11] MEDS ORDERED: Ketorolac INJ* 30 MG/ML 1 ML VIAL IV PUSH ONE (22:39)
[2019-02-11] MEDS ORDERED: diPHENhydraMINE IV* 50 MG/ML 1 ml VIAL (BENADRYL) SLOW PUSH ONE (22:39)
[2019-02-11] MEDS ORDERED: NS 0.9% 1000 ML** 2,000 ML IV ONE (22:39)
--- NOTE | 2019-02-11 22:58 | ED ---
Headache - HPI Summary HPI Summary: The patient is a 33 year old female who is presenting to the [facility] with a chief complaint of a ARCHER. She presented to the [facility] via ambulance and describes ARCHER that has been intermittent for the past 4 day. She states that the headache creates difficulty for her to open her jaw and the pain radiates from the top of her skull to the cheeks. There have been no visual changes and the patient states that nausea is only present when she has a ARCHER. She denies CP and abd pain. Her menstrual period is also reportedly normal and she has a cycle of 29 days. Symptoms are aggravated by bright lights. Symptoms are alleviated by nothing. The pain is rated to be 3/10 in severity. - History Of Current Complaint Chief Complaint: EDHeadache Stated Complaint: HEADACHE PER EMS Time Seen by Provider: 02/11/19 21:16 Hx Obtained From: Patient Hx Last Menstrual Period: 2 weeks ago 09/12/13 Initially Headache Was: Initial Pain Scale(0-10)= - 3 Currently Pain Is: Current Pain Scale(0-10)= - 3 Aggravating Factor: Bright Lights Allevating Factors: Nothing Associated Signs And Symptoms: Nausea - s/p ARCHER, Other (Noted In Comments) - Pain radiates to the cheeks and patient has difficulty opening jaws. - Allergies/Home Medications Allergies/Adverse Reactions: Allergies Allergy/AdvReac Type Severity Reaction Status Date / Time latex Allergy Rash Verified 02/11/19 21:18 iodine contrast Allergy Intermediate Coughing Uncoded 02/11/19 21:16 PMH/Surg Hx/FS Hx/Imm Hx Endocrine/Hematology History: Denies: Hx Diabetes, Hx Thyroid Disease Cardiovascular History: Denies: Hx Hypertension Respiratory History: Denies: Hx Asthma, Hx Chronic Obstructive Pulmonary Disease (COPD) GI History: Reports: Hx Gastroesophageal Reflux Disease, Hx Irritable Bowel Denies: Hx Ulcer Sensory History: Denies: Hx Contacts or Glasses, Hx Hearing Aid Opthamlomology History: Denies: Hx Contacts or Glasses Psychiatric History: Reports: Hx Anxiety - ON MED - Surgical History Surgery Procedure, Year, and Place: 2004 & 2009 CSECTION, [facility]. 2006 ABDOMINAL SCAR REVISION/REPAIR, [facility]. 1997 LEFT KNEE LIGAMENT REPAIR, [facility]. D&C Oct 2014 Hx Anesthesia Reactions: No Infectious Disease History: No Infectious Disease History: Denies: Hx Clostridium Difficile, Hx Hepatitis, Hx Human Immunodeficiency Virus (HIV), Hx of Known/Suspected MRSA, History Other Infectious Disease, Traveled Outside the [place] in Last 30 Days - Family History Known Family History: Negative: Cardiac Disease, Hypertension, Diabetes - Social History Occupation: Employed Full-time Lives: With Family Alcohol Use: None Hx Substance Use: No Substance Use Type: Reports: None Hx Tobacco Use: No Smoking Status (MU): Never Smoked Tobacco Review of Systems Constitutional: Negative Eyes: Other - Negative Visual changes ENT: Other - Difficulty opening Jaw Negative: Chest Pain Respiratory: Negative Positive: Nausea - w/ ARCHER. Negative: Abdominal Pain Genitourinary: Negative Musculoskeletal: Other - Pain radiating to the cheeks Skin: Negative Neurological: Negative Psychological: Normal All Other Systems Reviewed And Are Negative: Yes Physical Exam - Summary Physical Exam Summary: Appearance: Well-appearing, Well-nourished, lying in bed comfortably Skin: Warm, dry, no obvious rash Eyes: sclera anicteric, no conjunctival pallor ENT: mucous membranes moist, pharynx appears normal Neck: Supple, nontender Respiratory: Clear to auscultation, no signs of respiratory distress Cardiovascular: Normal S1, S2. No murmurs. Normal distal pulses in tibial and radial bilaterally. Abdomen: Soft, nontender, normal active bowel sounds present Musculoskeletal: Normal, Strength/ROM Intact Neurological: A&Ox3, awake and alert, mentation is normal, speech is fluent and appropriate Psychiatric: affect is normal, does not appear anxious or depressed Triage Information Reviewed: Yes Vital Signs On Initial Exam: Initial Vitals Temp Pulse Resp BP Pulse Ox 98.7 F 92 18 115/77 99 02/11/19 21:11 02/11/19 21:11 02/11/19 21:11 02/11/19 21:11 02/11/19 21:11 Vital Signs Reviewed: Yes Diagnostics - Vital Signs Vital Signs Temp Pulse Resp BP Pulse Ox 02/11/19 21:11 98.7 F 92 18 115/77 99 - Laboratory Lab Statement: Any lab studies that have been ordered have been reviewed, and results considered in the medical decision making process. - CT Brain CT CT Interpretation Completed By: Radiologist Summary of CT Findings: Brain CT reveals as per radiologist,. Normal noncontrast head CT. The ED Physician has reviewed this radiology report. Headache Course/Dx - Course Course Of Treatment: The patient is a 33 year old female who is presenting to the [facility] and received from the urgent care with a chief complaint of ARCHER. The ARCEHR has been present for 4 days and is intermittent. She denies CP, abd pain, and visual changes. Bright lights aggravated her condition. She has no Hx of Migraines. She received a Brain CT in the [facility] with unremarkable findings as per radiologist. Her physical exam and lab results showed unremarkable findings. The patient will be discharged home with dx of headache. - Diagnoses Provider Diagnoses: Headache Discharge - Sign-Out/Discharge Documenting (check all that apply): Patient Departure - Discharge Home Patient Received Moderate/Deep Sedation with Procedure: No - Discharge Plan Condition: Good Disposition: HOME Patient Education Materials: Acute Headache (ED) Referrals: Antionette Pollard MD [Primary Care Provider] - 3 Days (if not improving) Additional Instructions: We did not find any significant problem causing your headache, the CT scan was normal, as is your physical exam. - Billing Disposition and Condition Condition: GOOD Disposition: Home - Attestation Statements Document Initiated by Scribe: Yes Documenting Scribe: Rajesh Horn Provider For Whom Scribe is Documenting (Include Credential): Dr. Cornelius Washburn Scribe Attestation: Rajesh Hancock scribed for Dr. Cornelius Washburn on 02/13/19 at 0312. Scribe Documentation Reviewed: Yes Provider Attestation: The documentation as recorded by the Rajesh [email or web address] accurately reflects the service I personally performed and the decisions made by me, Dr. Cornelius Washburn Status of Scribe Document: Viewed
[2019-02-11 23:05] VITALS: BP 101/73
== END 2019-02-11 23:05 | disposition home or self-care (01) ==
LOC: ED 21:09
DX: R51 Headache (principal); Z91.040 Latex allergy status
CPT/HCPCS: 70450; 96361; 96374; 96375; 99282

== ENCOUNTER 2019-03-13 09:33 | Emergency (ER) | payer OTHER ==
[2019-03-13 09:45] VITALS: BP 105/71
--- NOTE | 2019-03-13 10:26 | UC ---
Complaint Female HPI - HPI Summary HPI Summary: 33 yo female presents with 3 days of body aches, fatigue, and feeling hot/cold with intermittent sweats. She has a decreased appetite, but is eating and drinking. She has not taken anything OTC for her symptoms. She works at [employer] and many students have been sick with similar symptoms. She has not taken her temperature. Denies weight loss, cough, sore throat, SOB, chest pain, abdominal pain, vomiting, diarrhea, dysuria. - History Of Current Complaint Chief Complaint: UCGeneralIllness Stated Complaint: FLU LIKE SYMP Time Seen by Provider: 03/13/19 10:25 Hx Obtained From: Patient Hx Last Menstrual Period: 02/19/19 Onset/Duration: Sudden Onset Timing: Constant Severity Initially: Moderate Severity Currently: Moderate Pain Intensity: 5 Pain Scale Used: 0-10 Numeric - Allergies/Home Medications Allergies/Adverse Reactions: Allergies Allergy/AdvReac Type Severity Reaction Status Date / Time latex Allergy Rash Verified 03/13/19 09:46 iodine contrast Allergy Intermediate Coughing Uncoded 03/13/19 09:46 PMH/Surg Hx/FS Hx/Imm Hx Psychological History: Anxiety, Depression - Surgical History Surgical History: Yes Surgery Procedure, Year, and Place: 2004 & 2009 CSECTION, [facility]. 2006 ABDOMINAL SCAR REVISION/REPAIR, [facility]. 1997 LEFT KNEE LIGAMENT REPAIR, [facility]. D&C Oct 2014 - Family History Known Family History: Positive: None Negative: Cardiac Disease, Hypertension, Diabetes Family History: R & n/C - Social History Occupation: Employed Full-time Lives: With Family Alcohol Use: None Substance Use Type: None Smoking Status (MU): Never Smoked Tobacco - Immunization History Most Recent Influenza Vaccination: fall 2013 Most Recent Tetanus Shot: within last 10 years Most Recent Pneumonia Vaccination: never Review of Systems All Other Systems Reviewed And Are Negative: Yes Constitutional: Positive: Fatigue, Other - Body aches Skin: Positive: Negative Eyes: Positive: Negative ENT: Positive: Negative Respiratory: Positive: Negative Cardiovascular: Positive: Negative Gastrointestinal: Positive: Negative Neurovascular: Positive: Negative Neurological: Positive: Headache Psychological: Positive: Negative Physical Exam - Summary Physical Exam Summary: GENERAL: NAD. WDWN. No pain distress. SKIN: No rashes, sores, lesions, or open wounds. HEENT: Head: AT/NC Eyes: EOM intact. Conjunctiva clear without inflammation or discharge. Ears: Hearing grossly normal. TMs intact, no bulging, erythema, or edema. Nose: Nasal mucosa pink and moist. NTTP maxillary and frontal sinus. Throat: Posterior oropharynx without exudates, erythema, or tonsillar enlargement. Uvula midline. NECK: Supple. Nontender. No lymphadenopathy. CHEST: CTAB. No r/r/w. No accessory muscle use. Breathing comfortably and in no distress. CV: RRR. Without m/r/g. Pulses intact. Cap refill <2seconds NEURO: Alert. PSYCH: Age appropriate behavior. Triage Information Reviewed: Yes Vital Signs: Initial Vital Signs Temp 98.7 F 03/13/19 09:42 Pulse 88 03/13/19 09:42 Resp 17 03/13/19 09:42 BP 105/71 03/13/19 09:42 Pulse Ox 100 03/13/19 09:42 Laboratory Tests 03/13/19 03/13/19 03/13/19 10:34 10:36 11:05 POC Urine Color Yellow POC Urine Clarity Clear POC Urine pH 6.0 POC Ur Specif [place] 1.020 POC Urine Protein Trace A POC Ur Glucose (UA) Negative POC Urine Ketones Negative POC Urine Blood Negative POC Urine Nitrite Negative POC Urine Bilirubin Negative POC Urine Urobilinogen 0.2 POC U Leukocyte Esteras Negative POC Ur Test Negative Influenza A (Rapid) Negative Influenza B (Rapid) Negative Vital Signs Reviewed: Yes Complaint Female Dx - Course Course Of Treatment: In the clinic pt was given 1L NS. She declined zofran. S/p she reported feeling improved and felt that she had more energy. She is well appearing, afebrile, and exam is WNL today. UA and flu negative. Suspect viral illness. Advised to rest, drink plenty of fluids, and take tylenol/ibuprofen for discomfort. F/u if symptoms do not improve in 3 days. - Differential Dx/Diagnosis Provider Diagnosis: Viral syndrome Discharge - Sign-Out/Discharge Documenting (check all that apply): Patient Departure All imaging exams completed and their final reports reviewed: No Studies - Discharge Plan Condition: Stable Disposition: HOME Patient Education Materials: Viral Syndrome (ED) Forms: *Work Release Referrals: Antionette Pollard MD [Primary Care Provider] - Additional Instructions: If you develop a fever, shortness of breath, chest pain, new or worsening symptoms - please call your PCP or go to the ED immediately. Rest and drink plenty of fluids. Advance your diet as tolerated with bananas, rice, applesauce, and toast. - Billing Disposition and Condition Condition: STABLE Disposition: Home
[2019-03-13 11:18] LABS: Influenza A Molecular NEGATIVE (Negative); Influenza B Molecular NEGATIVE (Negative)
[2019-03-13] MEDS: NS 0.9% 1000 ML** 1,000 ML IV ONE (11:32)
[2019-03-13] MEDS: Ondansetron INJ* 2 MG/ML VIAL IV ONE (11:34)
[2019-03-13 16:25] LABS: Total Bilirubin 0.3 mg/dL (0.2-1.0)
[2019-03-13 16:26] LABS: ABS Eosinophils 0.1 10^3/ul (0-0.6); ABS Lymphocytes 1.2 10^3/ul (1.0-4.8); ABS Monocytes 0.8 10^3/ul (0-0.8); ABS Neutrophils 4.1 10^3/ul (1.5-7.7); Eosinophil % 1.1 %; Hematocrit 40 % (35-47); Hemoglobin 13.2 g/dL (12.0-16.0); Lymphocyte % 18.8 %; Mean Corpuscular HGB Conc 33 g/dL (31-36); Mean Corpuscular Hemoglobin 30 pg (27-31); Mean Corpuscular Volume 90 fL (80-97); Nucleated Red Blood Cells % 0.1; Platelet Count 167 10^3/uL (150-450); Red Blood Count 4.41 10^6 /uL (3.70-4.87); Red Cell Distribution Width 13 % (10.5-15); White Blood Count 6.2 10^3/uL (3.5-10.8)
[2019-03-13 16:31] LABS: Albumin/Globulin Ratio 1.4 (1-3); BUN/Creatinine Ratio 17.2 (8-20); EGFR African American 127.8 (>60); EGFR Non-African American 105.6 (>60); Globulin 2.8 g/dL (2-4); Total Protein 6.8 g/dL (6.4-8.9)
== END 2019-03-13 12:26 | disposition home or self-care (01) ==
LOC: UCEAST 09:33
DX: B34.9 Viral infection, unspecified (principal); R52 Pain, unspecified; R53.83 Other fatigue; R63.8 Other symptoms and signs concerning food and fluid intake; Z91.041 Radiographic dye allergy status; Z91.040 Latex allergy status
CPT/HCPCS: 36415; 80053; 81003; 84702; 85025; 96360; 99211; G0463; J2405